=== PATIENT | male | born 1950 | race Caucasian/White ===

== ENCOUNTER 2016-08-20 18:06 | Emergency (ER) | payer OTHER ==
[2016-08-20] MEDS ORDERED: MORPHINE SULFATE 10 MG/ML INJ IM ONE (18:32)
[2016-08-20] MEDS ORDERED: CLONIDINE HCL 0.2 MG TABLET PO ONE (18:34)
--- NOTE | 2016-08-20 18:34 | ER Document Report ---
ED Fall - General Chief Complaint: Fall Stated Complaint: FALL BACK PAIN Time Seen by Provider: 08/20/16 18:23 Mode of Arrival: Wheelchair Information source: Patient TRAVEL OUTSIDE OF THE [place] IN LAST 30 DAYS: No - HPI Patient complains to provider of: Fall down stairs Occurred: Just prior to arrival Where: Home Context: Lost balance Associated symptoms: None Location of injury/pain: Back Quality of pain: Achy Severity: Moderate Pain Level: 3 Notes: Patient is a 65-year-old male who presents to the emergency room complaining of fall down stairs, states he lost his balance which he sometimes does become he has a history of vertigo, and he fell down approximately 12 stairs in his home, he is complaining of low back pain, he denies any head injury or loss of consciousness, no vision changes, no nausea or vomiting, tingling to extremities other than some tingling sensation to his feet that he has chronically - Related data Allergies/Adverse Reactions: hydrocodone [From Lortab] Allergy (Verified 08/20/16 18:19) ibuprofen [From Motrin] Allergy (Verified 08/20/16 18:19) lorazepam [From Ativan] Allergy (Verified 08/20/16 18:19) Past Medical History - General Information source: Patient - Social History Smoking Status: Former Smoker Chew tobacco use (# tins/day): No Frequency of alcohol use: None Drug Abuse: None Family History: Reviewed & Not Pertinent Patient has suicidal ideation: No Patient has homicidal ideation: No - Past Medical History Cardiac Medical History: Reports: Hx Heart Attack - x2, Hx Hypertension Pulmonary Medical History: Reports: Hx COPD Endocrine Medical History: Reports: Hx Diabetes Mellitus Type 2 Renal/ Medical History: Denies: Hx Peritoneal Dialysis Past Surgical History: Reports: Hx Appendectomy, Hx Cardiac Surgery - stent x2, Hx Cholecystectomy, Hx Orthopedic Surgery - left and right rotator cuff - Immunizations Hx Diphtheria, Pertussis, Tetanus Vaccination: Yes Review of Systems - Review of Systems Constitutional: No symptoms reported EENT: No symptoms reported Cardiovascular: No symptoms reported Respiratory: No symptoms reported Gastrointestinal: No symptoms reported Genitourinary: No symptoms reported Male Genitourinary: No symptoms reported Musculoskeletal: See HPI Skin: No symptoms reported Hematologic/Lymphatic: No symptoms reported Neurological/Psychological: No symptoms reported -: Yes All other systems reviewed and negative Physical Exam - Vital signs Vitals: Temp Pulse Resp BP Pulse Ox 97.7 F 68 16 230/86 H 97 08/20/16 18:19 08/20/16 18:19 08/20/16 18:19 08/20/16 18:19 08/20/16 18:19 - Notes Notes: - General General appearance: Appears well, Alert In distress: None - HEENT Head: Normocephalic, Atraumatic Eyes: Normal Conjunctiva: Normal Extraocular movements intact: Yes Eyelashes: Normal Pupils: PERRL - Respiratory Respiratory status: No respiratory distress - Cardiovascular Rhythm: Regular - Abdominal Inspection: Normal - Back Back: tender to palpate in the bilateral lumbar paraspinal musculature - Extremities General upper extremity: Normal inspection General lower extremity: Normal inspection - Neurological Neuro grossly intact: Yes Orientation: AAOx4 Stephen Coma Scale Eye Opening: Spontaneous Stephen Coma Scale Verbal: Oriented Armour Coma Scale Motor: Obeys Commands Armour Coma Scale Total: 15 - Psychological Associated symptoms: Normal affect, Normal mood - Skin Skin Temperature: Warm Skin Moisture: Dry Skin Color: Normal Course - Re-evaluation Re-evalutation: 08/20/16 19:48 Findings were discussed with patient, which are unremarkable, he does report feeling much better, patient was advised to follow-up with his primary care provider in 1-2 days, patient acknowledges understanding and agreement with this plan 08/20/16 19:50 Was noted to be hypertensive at time of arrival, he was given clonidine and pain medication, blood pressure is improved, he does have a history of high blood pressure and takes medication at home for the - Vital Signs Vital signs: Temp Pulse Resp BP Pulse Ox 97.7 F 68 16 230/86 H 97 08/20/16 18:19 08/20/16 18:19 08/20/16 18:19 08/20/16 18:19 08/20/16 18:19 - Diagnostic Test Radiology reviewed: Image reviewed, Reports reviewed Discharge - Discharge Clinical Impression: Low back pain Qualifiers: Chronicity: acute Back pain laterality: bilateral Sciatica presence: without sciatica Qualified Code(s): M54.5 - Low back pain Condition: Stable Disposition: HOME, SELF-CARE Instructions: Muscle Strain ([facility]), Oral Narcotic Medication ([facility]) Additional Instructions: Follow up with your primary care provider in one to 2 days. Return to the emergency room immediately if symptoms worsen or any additional concerns. Prescriptions: Oxycodone HCl/Acetaminophen [Percocet 5-325 mg Tablet] 1 - 2 tab PO ASDIR PRN # 15 tablet PRN Reason:
--- NOTE | 2016-08-20 19:39 | RADIOLOGY REPORT (SQ) ---
EXAM DESCRIPTION: L SPINE WHOLE COMPLETED DATE/TIME: 08/20/2016 7:21 pm REASON FOR STUDY: fall COMPARISON: None. NUMBER OF VIEWS: Five views including obliques. TECHNIQUE: AP, lateral, oblique, and sacral radiographic images acquired of the lumbar spine. LIMITATIONS: None. FINDINGS: MINERALIZATION: Normal. SEGMENTATION: Normal. No transitional anatomy. ALIGNMENT: Normal. VERTEBRAE: Maintained height. No fracture or worrisome bone lesion. DISCS: Preserved height. No significant osteophytes or end plate irregularity. POSTERIOR ELEMENTS: Pedicles and facets are intact. No pars defect or posterior arch defects. HARDWARE: None in the spine. PARASPINAL SOFT TISSUES: Normal. PELVIS: Intact as visualized. No fractures or worrisome bone lesions. SI joints intact. OTHER: No other significant finding. IMPRESSION: NORMAL 5 VIEW LUMBAR SPINE. TECHNICAL DOCUMENTATION: JOB ID: [id number] [employer]- All Rights Reserved
[2016-08-20 20:18] VITALS: BP 205/92
== END 2016-08-20 20:00 | disposition home or self-care (01) ==
LOC: ER 18:06
DX: M54.5 Low back pain (principal); W10.9XXA Fall (on) (from) unspecified stairs and steps, initial encounter; Y92.099 Unspecified place in other non-institutional residence as the place of occurrence of the external cause; I10 Essential (primary) hypertension; J44.9 Chronic obstructive pulmonary disease, unspecified; E11.9 Type 2 diabetes mellitus without complications; Z90.49 Acquired absence of other specified parts of digestive tract; I25.2 Old myocardial infarction; Z87.891 Personal history of nicotine dependence; Z88.6 Allergy status to analgesic agent
CPT/HCPCS: 99283; 96372; 72110; J2270

== ENCOUNTER 2016-12-15 06:25 | Day surgery (SDC) | payer OTHER ==
[~2016-12-15 06:25] MED LIST: KETOROLAC TROMETHAMINE 0.45% 4 DROP/0.4 ML DROPERETTE OD PRN
[2016-12-15] MEDS: TROPICAMIDE 1% OPH SOLN 3 ML OD PRN ×3 (06:51→07:11)
[2016-12-15] MEDS: CYCLOPENTOLATE 0.2%/PHENYLEPHRINE 1% OPH SOLN 2 ML OD PRN ×3 (06:51→07:11)
[2016-12-15] MEDS: BESIFLOXACIN HCL 0.6% OPH SUSP 5 ML BOTTLE OD PRN ×3 (06:51→08:01)
[2016-12-15] MEDS: TETRACAINE HCL 0.5% OPH SOLN 2 ML OD PRN ×3 (06:52→07:38)
[2016-12-15] MEDS ORDERED: MIDAZOLAM 2 MG/2 ML INJ ONE (06:54)
[2016-12-15] MEDS ORDERED: FENTANYL CITRATE INJ/PF 100 MCG/2 ML AMPUL ONE (06:54)
[2016-12-15] MEDS ORDERED: EPINEPHRINE INJ/PF 1 MG/1 ML AMPULE ONE (07:16)
[2016-12-15] MEDS ORDERED: CHONDR SU A NA/HYALUR INTRAOC KIT (SURGICARE) ONE (07:16)
[2016-12-15] MEDS ORDERED: LIDOCAINE 1% INJ-PF (10 MG/ML) 30 ML SDV ONE (07:16)
[2016-12-15] MEDS ORDERED: ONDANSETRON HCL INJ/PF 4 MG/2 ML SDV ONE (07:42)
--- NOTE | 2016-12-15 18:18 | [facility] OPERATIVE REPORT E ---
[facility] Operative Report NAME: CONSUELO BARCLAY AGE: 66Y DATE OF SURGERY: 12/15/2016 ROOM: PREOPERATIVE DIAGNOSIS: CATARACT, RIGHT EYE. POSTOPERATIVE DIAGNOSIS: CATARACT, RIGHT EYE. OPERATION: Cataract extraction with intraocular lens implant of the right eye. SURGEON: CRIS WALLER M.D. ANESTHESIA: Topical. PROCEDURE: After obtaining appropriate consent, the patient's right eye was prepped and draped in sterile fashion as well as the surgeon in a sterile manner and cataract surgery was started. First a paracentesis blade was used to make a small side-port incision. Viscoelastic was used to inflate the anterior chamber. Next a 2.4 mm incision was made with the paracentesis blade. A continuous capsulorrhexis incision was made using a cystotome and Utrata forceps. Following this hydrodissection was carried out to make the lens fully loose and mobile and it was rotated 90 degrees. Following this, a bzvhte-hmk-hpybxte technique was used to phacoemulsify the lens with a CDE of 26.63. The remaining cortex was removed with irrigation/aspiration. Provisc was instilled into the capsular bag to inflate the bag. A SN60WF, 25.0 diopter lens was placed. The remaining viscoelastic material was removed with irrigation/aspiration. Following this, a 10-0 nylon suture was used to close the incision and it was found to be watertight. Vigamox was instilled in the eye and a protective shield was placed over the eye. The patient returned to the postoperative recovery in stable condition. DICTATING PHYSICIAN: CRIS WALLER M.D. [id number] PHY#: [id number] ID: [id number] JOB#: [id number] ACCT: [id number] cc:CRIS WALLER M.D. >
--- NOTE | 2016-12-15 18:18 | DISCHARGE SUMMARY E ---
Discharge Summary NAME: CONSUELO BARCLAY : 1950 AGE: 66Y ADMITTED: 12/15/2016 DISCHARGED: 12/15/2016 REASON FOR ADMISSION: This is a 65-year-old patient who underwent cataract extraction of the right eye. DIAGNOSIS: Cataract, right eye. HISTORY AND HOSPITAL COURSE: They underwent surgery because she was having trouble reading road signs and getting glare from headlights. The patient should be on a regular diet. No bending at the waist. No heavy lifting. The patient should use her Besivance, Durezol, and Ilevro at 3:00 p.m. and 8:00 p.m. and sleep with a rigid shield, and I will see them for a 1-day postoperative tomorrow. DICTATING PHYSICIAN: CRIS WALLER M.D. [id number] PHY#: [id number] ID: [id number] JOB#: [id number] ACCT: [id number] cc:CRIS WALLER M.D. >
== END 2016-12-15 09:16 | disposition home or self-care (01) ==
LOC: SC 06:25
PROVIDERS: ATTEND Internal Medicine
PROC: 08RJ3JZ Replacement of Right Lens with Synthetic Substitute, Percutaneous Approach (ICD-10-PCS; principal; 2016-12-15 07:30)
DX: H25.11 Age-related nuclear cataract, right eye (principal); J44.9 Chronic obstructive pulmonary disease, unspecified; I10 Essential (primary) hypertension; E11.9 Type 2 diabetes mellitus without complications; I25.2 Old myocardial infarction; Z86.73 Personal history of transient ischemic attack (TIA), and cerebral infarction without residual deficits; Z79.82 Long term (current) use of aspirin; Z88.8 Allergy status to other drugs, medicaments and biological substances; Z88.6 Allergy status to analgesic agent
CPT/HCPCS: 82962; 66984; V2632; J3490 ×2; J0171; J3010; J2405; 142; J2250

== ENCOUNTER 2017-01-05 06:50 | Day surgery (SDC) | payer OTHER ==
[~2017-01-05 06:50] MED LIST changes: -KETOROLAC TROMETHAMINE 0.45% 4 DROP/0.4 ML DROPERETTE OD PRN; +KETOROLAC TROMETHAMINE 0.45% 4 DROP/0.4 ML DROPERETTE OS PRN
[2017-01-05] MEDS ORDERED: MIDAZOLAM 2 MG/2 ML INJ ONE (06:52)
[2017-01-05] MEDS ORDERED: FENTANYL CITRATE INJ/PF 100 MCG/2 ML AMPUL ONE (06:53)
[2017-01-05] MEDS ORDERED: EPINEPHRINE INJ/PF 1 MG/1 ML AMPULE ONE (07:07)
[2017-01-05] MEDS ORDERED: CHONDR SU A NA/HYALUR INTRAOC KIT (SURGICARE) ONE (07:07)
[2017-01-05] MEDS ORDERED: LIDOCAINE 1% INJ-PF (10 MG/ML) 30 ML SDV ONE (07:07)
[2017-01-05] MEDS: TETRACAINE HCL 0.5% OPH SOLN 2 ML OS PRN ×3 (07:08→07:54)
[2017-01-05] MEDS: CYCLOPENTOLATE 0.2%/PHENYLEPHRINE 1% OPH SOLN 2 ML OS PRN ×3 (07:08→07:37)
[2017-01-05] MEDS: TROPICAMIDE 1% OPH SOLN 3 ML OS PRN ×3 (07:08→07:37)
[2017-01-05] MEDS: BESIFLOXACIN HCL 0.6% OPH SUSP 5 ML BOTTLE OS PRN ×4 (07:09→08:20)
--- NOTE | 2017-01-06 08:03 | [facility] DISCHARGE SUMMARY E ---
[facility] Discharge Summary NAME: CONSUELO BARCLAY AGE: 66Y ADMITTED: 01/05/2017 DISCHARGED: 01/05/2017 HOSPITAL COURSE This is a 66-year-old patient who underwent cataract extraction of the left eye. DIAGNOSIS: CATARACT, LEFT EYE. INDICATION: Patient underwent surgery because the patient is having difficulty with glare from headlights making it difficult to drive. DISCHARGE INSTRUCTIONS: Patient is to be on a regular diet; no bending at the waist; no heavy lifting. Patient is to use Besivance, Ilevro and Durezol at 3:00 p.m. and 8:00 p.m.; and, sleep with a rigid shield. I will see patient for 1-day postoperative. DICTATING PHYSICIAN: CRIS WALLER M.D. [id number] Y#: [id number] ID: [id number] JOB#: [id number] ACCT: [id number] cc:CRIS WALLER M.D. >
--- NOTE | 2017-01-06 08:03 | [facility] OPERATIVE REPORT E ---
[facility] Operative Report NAME: CONSUELO BARCLAY AGE: 66Y DATE OF SURGERY: 01/05/2017 ROOM: PREOPERATIVE DIAGNOSIS: CATARACT, LEFT EYE. POSTOPERATIVE DIAGNOSIS: CATARACT, LEFT EYE. OPERATION: Cataract extraction with intraocular lens implant of the left eye. SURGEON: CRIS WALLER M.D. ANESTHESIA: Topical. PROCEDURE: After obtaining appropriate consent, the patient's left eye was prepped and draped in sterile fashion as well as the surgeon in a sterile manner and cataract surgery was started. First a paracentesis blade was used to make a small side-port incision. Viscoelastic was used to inflate the anterior chamber. Next a 2.4 mm incision was made with the paracentesis blade. A continuous capsulorrhexis incision was made using a cystotome and Utrata forceps. Following this hydrodissection was carried out to make the lens fully loose and mobile and it was rotated 90 degrees. Following this, a qvzjqx-nbl-lkzbrnk technique was used to phacoemulsify the lens with a CDE of 10.20. The remaining cortex was removed with irrigation/aspiration. Provisc was instilled into the capsular bag to inflate the bag. A SN60WF, 25.0 diopter lens was placed. The remaining viscoelastic material was removed with irrigation/aspiration. Following this, a 10-0 Nylon suture was used to close the incision and it was found to be watertight. Vigamox was instilled in the eye and a protective shield was placed over the eye. The patient returned to the postoperative recovery in stable condition. DICTATING PHYSICIAN: CRIS WALLER M.D. [id number] PHY#: [id number] ID: [id number] JOB#: [id number] ACCT: [id number] cc:CRIS WALLER M.D. >
== END 2017-01-05 09:17 | disposition home or self-care (01) ==
LOC: SC 06:50
PROVIDERS: ATTEND Internal Medicine
PROC: 08RK3JZ Replacement of Left Lens with Synthetic Substitute, Percutaneous Approach (ICD-10-PCS; principal; 2017-01-05 08:00)
DX: H25.12 Age-related nuclear cataract, left eye (principal); Z96.1 Presence of intraocular lens; Z86.73 Personal history of transient ischemic attack (TIA), and cerebral infarction without residual deficits; E11.9 Type 2 diabetes mellitus without complications; K21.9 Gastro-esophageal reflux disease without esophagitis; I10 Essential (primary) hypertension; I25.10 Atherosclerotic heart disease of native coronary artery without angina pectoris; Z79.899 Other long term (current) drug therapy; Z79.82 Long term (current) use of aspirin; Z79.84 Long term (current) use of oral hypoglycemic drugs
CPT/HCPCS: 66984; 82962; V2632; J2250; J3490 ×2; J0171; J3010; 142

== ENCOUNTER 2017-02-18 19:06 | Observation (INO) | payer OTHER ==
[2017-02-18] MEDS ORDERED: HYDRALAZINE HCL INJ/PF 20 MG/1 ML SDV IV ONE (19:23)
--- NOTE | 2017-02-18 19:26 | ER Document Report ---
ED General - General Stated Complaint: ALTERED MENTAL STATUS Time Seen by Provider: 02/18/17 19:20 Mode of Arrival: Medic Information source: Patient Notes: 66-year-old male on lisinopril hydrochlorothiazide metoprolol and amlodipine presents with complaints of sudden episode of confusion dizziness and syncope. Patient has had a history of TIAs and previous CVA. Patient's blood pressure upon arrival was noted to be 253/110 TRAVEL OUTSIDE OF THE [place] IN LAST 30 DAYS: No - HPI Onset: Just prior to arrival Onset/Duration: Sudden Quality of pain: Achy Severity: Mild Pain Level: 1 Associated symptoms: Headache Exacerbated by: Denies Relieved by: Denies Similar symptoms previously: Yes Recently seen / treated by doctor: Yes - Related Data Allergies/Adverse Reactions: diazepam [From Valium] Allergy (Intermediate, Verified 01/05/17 07:40) RASH lorazepam [From Ativan] Allergy (Intermediate, Verified 01/05/17 07:40) RASH hydrocodone [From Lortab] Adverse Reaction (Intermediate, Verified 01/05/17 07: 40) NAUSEA VOMITING ibuprofen [From Motrin] Adverse Reaction (Intermediate, Verified 01/05/17 07:40) NAUSEA VOMITING Home Medications: Current Home Medications Amlodipine Besylate [Norvasc 10 mg Tablet] 10 mg PO DAILY 02/18/17 [History] Finasteride [Proscar 5 mg Tablet] 5 mg PO DAILY 02/18/17 [History] Glipizide 5 mg PO DAILY 02/18/17 [History] Trazodone HCl 100 mg PO BID 02/18/17 [History] Past Medical History - Social History Smoking Status: Current Every Day Smoker Cigarette use (# per day): Yes Chew tobacco use (# tins/day): No Smoking Education Provided: No Family History: Reviewed & Not Pertinent - Past Medical History Cardiac Medical History: Reports: Hx Heart Attack - 'S, Hx Hypertension - medication Pulmonary Medical History: Reports: Hx COPD Denies: Hx Asthma Neurological Medical History: Denies: Hx Cerebrovascular Accident, Hx Seizures Endocrine Medical History: Reports: Hx Diabetes Mellitus Type 2 Renal/ Medical History: Denies: Hx Peritoneal Dialysis GI Medical History: Reports: Hx Ulcer - LATE . Denies: Hx Hepatitis, Hx Hiatal Hernia Infectious Medical History: Denies: Hx Hepatitis Past Surgical History: Reports: Hx Appendectomy, Hx Cardiac Surgery - stent x2, Hx Cholecystectomy, Hx Orthopedic Surgery - left and right rotator cuff. Denies : Hx Open Heart Surgery, Hx Pacemaker - Immunizations Hx Diphtheria, Pertussis, Tetanus Vaccination: Yes Review of Systems - Review of Systems Notes: REVIEW OF SYSTEMS: CONSTITUTIONAL : Denies fever, chills, or sweats. Denies recent illness. EENT: Denies eye, ear, throat, or mouth pain or symptoms. Denies nasal or sinus congestion or discharge. Denies throat, tongue, or mouth swelling or difficulty swallowing. CARDIOVASCULAR: Denies chest pain. Denies palpitations or racing or irregular heart beat. Denies ankle edema. RESPIRATORY: Denies cough, cold, or chest congestion. Denies shortness of breath, difficulty breathing, or wheezing. GASTROINTESTINAL: Denies abdominal pain or distention. Denies nausea, vomiting , or diarrhea. Denies blood in vomitus, stools, or per rectum. Denies black, tarry stools. Denies constipation. GENITOURINARY: Denies difficulty urinating, painful urination, burning, frequency, blood in urine, or discharge. MUSCULOSKELETAL: Denies back or neck pain or stiffness. Denies joint pain or swelling. SKIN: Denies rash, lesions or sores. HEMATOLOGIC : Denies easy bruising or bleeding. LYMPHATIC: Denies swollen, enlarged glands. NEUROLOGICAL: admits to headache syncope PSYCHIATRIC: Denies anxiety or stress. Denies depression, suicidal ideation, or homicidal ideation. ALL OTHER SYSTEMS REVIEWED AND NEGATIVE. Dictation was performed using [employer] voice recognition software PHYSICAL EXAMINATION: GENERAL: Well-appearing, well-nourished and in no acute distress. HEAD: Atraumatic, normocephalic. EYES: Pupils equal round and reactive to light, extraocular movements intact, sclera anicteric, conjunctiva are normal. ENT: Nares patent, oropharynx clear without exudates. Moist mucous membranes. NECK: Normal range of motion, supple without lymphadenopathy LUNGS: Breath sounds clear to auscultation bilaterally and equal. No wheezes rales or rhonchi. HEART: Regular rate and rhythm without murmurs ABDOMEN: Soft, nontender, nondistended abdomen. No guarding, no rebound. No masses appreciated. Musculoskeletal: Normal range of motion, no pitting or edema. No cyanosis. NEUROLOGICAL: Cranial nerves grossly intact. Normal speech, normal gait. Normal sensory, motor exams PSYCH: Normal mood, normal affect. SKIN: Warm, Dry, normal turgor, no rashes or lesions noted. Physical Exam - Vital signs Vitals: Resp Pulse Ox 19 97 02/18/17 19:18 02/18/17 19:18 Course - Re-evaluation Re-evalutation: 02/18/17 20:16 Patient is noted to be significantly hypertensive, was given 20 of hydralazine and blood pressure has improved approximately 20% stroke workup notes no significant abnormality at this time hospitalist paged for admission 02/19/17 03:15 Patient blood pressure did improve, he is in no distress at this time, - Vital Signs Vital signs: Temp Pulse Resp BP Pulse Ox 97.7 F 82 20 195/75 H 98 02/19/17 00:24 02/19/17 02:00 02/19/17 00:24 02/19/17 00:24 02/19/17 00:24 - Laboratory Result Diagrams: 02/19/17 02:03 02/19/17 02:03 Laboratory results interpreted by me: 02/18/17 02/18/17 19:50 19:50 Glucose 115 H Creatine Kinase 205 H TSH 4.71 H - Diagnostic Test Radiology reviewed: Image reviewed, Reports reviewed - EKG Interpretation by Me EKG shows normal: Sinus rhythm, [place], Intervals, QRS Complexes Critical Care Note - Critical Care Note Total time excluding time spent on procedures (mins): 41 Comments: 41 minutes of critical care time spent in direct contact evaluating and reevaluating the patient, treating symptoms, reviewing labs and studies and speaking with family and consultants excluding any procedures Discharge - Discharge Clinical Impression: Hypertensive emergency TIA (transient ischemic attack) Qualifiers: Transient cerebral ischemia type: unspecified Qualified Code(s): G45.9 - Transient cerebral ischemic attack, unspecified Condition: Stable Disposition: ADMITTED INPATIENT Admitting Provider: Hospitalist Unit Admitted: [facility]
--- NOTE | 2017-02-18 19:49 | RADIOLOGY REPORT (SQ) ---
EXAM DESCRIPTION: CHEST SINGLE VIEW COMPLETED DATE/TIME: 02/18/2017 7:33 pm REASON FOR STUDY: htn, syncope COMPARISON: None. EXAM PARAMETERS: NUMBER OF VIEWS: One view. TECHNIQUE: Single frontal radiographic view of the chest acquired. RADIATION DOSE: NA LIMITATIONS: None. FINDINGS: LUNGS AND PLEURA: No opacities, masses or pneumothorax. No pleural effusion. MEDIASTINUM AND HILAR STRUCTURES: No masses. Contour normal. HEART AND VASCULAR STRUCTURES: Heart normal in size. Normal vasculature. BONES: No acute findings. HARDWARE: None in the chest. OTHER: No other significant finding. IMPRESSION: NO ACUTE RADIOGRAPHIC FINDING IN THE CHEST. TECHNICAL DOCUMENTATION: JOB ID: [id number] [employer]- All Rights Reserved
[2017-02-18 20:00] LABS: ABSOLUTE BASOPHILS # (AUTO) 0.1 10^3/uL (0.0-0.2); ABSOLUTE EOSINOPHILS # (AUTO) 0.4 10^3/uL (0.0-0.6); ABSOLUTE MONOCYTES (AUTO) 0.7 10^3/uL (0.1-1.4); ABSOLUTE NEUT (AUTO) 5.9 10^3/uL (1.7-8.2); BASOPHILS % (AUTO) 0.9 % (0-2); EOSINOPHILS % (AUTO) 4.1 % (0-6); HEMATOCRIT 42.3 % (37.9-51.0); HEMOGLOBIN 15.1 g/dL (13.5-17.0); LYMPHOCYTES % (AUTO) 21.7 % (13-45); MEAN CORPUSCULAR HEMOGLOBIN 29.9 pg (27.0-33.4); MEAN CORPUSCULAR HGB CONC 35.7 g/dL (32.0-36.0); MEAN CORPUSCULAR VOLUME 84 fl (80-97); MONOCYTES % (AUTO) 8.1 % (3-13); RED BLOOD COUNT 5.05 10^6/uL (4.35-5.55); RED CELL DISTRIBUTION WIDTH 13.8 % (11.5-14.0); SEGMENTED NEUTROPHILS % (AUTO) 65.2 % (42-78)
--- NOTE | 2017-02-18 20:02 | RADIOLOGY REPORT (SQ) ---
EXAM DESCRIPTION: CT HEAD WITHOUT COMPLETED DATE/TIME: 02/18/2017 7:38 pm REASON FOR STUDY: htn, syncope COMPARISON: 03/05/2016 TECHNIQUE: Axial images acquired through the brain without intravenous contrast. Images reviewed wi th bone, brain and subdural windows. Images stored on PACS. All CT scanners at this facility use dose modulation, iterative reconstruction, and/or weight based d osing when appropriate to reduce radiation dose to as low as reasonably achievable (ALARA). [facility]: Dose Right [facility]: CareDose [facility]: Dose Right [facility]: Teradose 4D [facility]: [employer] RADIATION DOSE: CT Rad equipment meets quality standard of care and radiation dose reduction techniq ues were employed. CTDIvol: 64.6 mGy. DLP: 1163 mGy-cm. mGy. LIMITATIONS: None. FINDINGS: VENTRICLES: Stable size and contour, again demonstrating ex vacuo dilatation of the fronta l horn of the left lateral ventricle. CEREBRUM: No masses. No hemorrhage. No midline shift. No evidence for acute infarction. Left front al lobe encephalomalacia, unchanged in the study interval. Otherwise normal mallory- white matter diffe rentiation. CEREBELLUM: No masses. No hemorrhage. No alteration of density. No evidence for acute infarction. EXTRAAXIAL SPACES: No fluid collections. No masses. ORBITS AND GLOBE: No intra- or extraconal masses. Normal contour of globe without masses. CALVARIUM: No fracture. PARANASAL SINUSES: No fluid or mucosal thickening. SOFT TISSUES: No mass or hematoma. OTHER: Atherosclerotic vascular calcifications are seen within the cavernous segments of the internal carotid arteries. IMPRESSION: Stable CT appearance of the brain, again demonstrating left frontal encephalomalacia wit h ex vacuo dilatation of the frontal horn of the left lateral ventricle, consistent with sequela of r emote ischemic injury. No acute findings. EVIDENCE OF ACUTE STROKE: NO. COMMENT: Quality ID # [id number]: Final reports with documentation of one or more dose reduction techniques (e.g., Automated exposure control, adjustment of the mA and/or kV according to patient size, use of iterative reconstruction technique) TECHNICAL DOCUMENTATION: JOB ID: [id number] [employer]- All Rights Reserved
[2017-02-18 20:05] LABS: PROTHROMBIN TIME 12.4 SEC (11.4-15.4)
[2017-02-18 20:06] LABS: PARTIAL THROMBOPLASTIN TIME 29.9 SEC (23.5-35.8)
[2017-02-18 20:18] LABS: ALANINE AMINOTRANSFERASE 56 U/L (21-72); ALBUMIN 4.3 g/dL (3.5-5.0); ALKALINE PHOSPHATASE 61 U/L (38-126); ANION GAP 14 (5-19); ASPARTATE AMINO TRANSFERASE 26 U/L (17-59); BILIRUBIN,DIRECT 0.3 mg/dL (0.0-0.4); BILIRUBIN,TOTAL 0.4 mg/dL (0.2-1.3); BLOOD UREA NITROGEN 19 mg/dL (7-20); CALCIUM 9.2 mg/dL (8.4-10.2); CARBON DIOXIDE 22 mmol/L (22-30); CHLORIDE 107 mmol/L (98-107); CREATINE KINASE 205 U/L (55-170); CREATININE RESULT 1.17 mg/dL (0.52-1.25); GLUCOSE 115 mg/dL (75-110); POTASSIUM 3.9 mmol/L (3.6-5.0); SODIUM 143.3 mmol/L (137-145); TOTAL PROTEIN 6.7 g/dL (6.3-8.2)
[2017-02-18 20:28] LABS: CREATINE KINASE MB 2.78 ng/mL (<4.55); TROPONIN I 0.014 ng/mL
[2017-02-18] MEDS ORDERED: ATORVASTATIN CALCIUM 40 MG TABLET PO SCH (22:00)
[2017-02-18] MEDS ORDERED: IPRATROPIUM/ALBUTEROL 0.5-2.5 MG/3 ML AMPUL NEB PRN (22:06)
[2017-02-18] MEDS ORDERED: ZOLPIDEM TARTRATE 5 MG TABLET PO PRN (22:06)
[2017-02-18] MEDS ORDERED: ONDANSETRON HCL INJ/PF 4 MG/2 ML SDV IV PRN (22:06)
[2017-02-18] MEDS ORDERED: ACETAMINOPHEN 325 MG TABLET PO PRN (22:06)
[2017-02-18] MEDS ORDERED: INSULIN LISPRO 100 UNIT/ML 3 ML VIAL SUBCUT PRN (22:06)
[2017-02-18] MEDS ORDERED: DEXTROSE 40% GEL 15 GM TUBE PO PRN ×2 (22:06)
[2017-02-18] MEDS ORDERED: DEXTROSE 50%-WATER 25 GM/50 ML DISP.SYRIN IV PRN ×2 (22:06)
[2017-02-18] MEDS ORDERED: GLUCAGON,HUMAN RECOMB 1 MG INJ IM PRN (22:06)
[2017-02-18 22:47] LABS: URINE BARBITURATES SCREEN NEGATIVE; URINE METHADONE SCREEN NEGATIVE; URINE OPIATES LOW NEGATIVE; URINE PHENCYCLIDINE SCREEN NEGATIVE
[2017-02-18] MEDS ORDERED: NITROGLYCERIN 5 MG (0.2 MG/HR) PATCH.TD24 TD ONE (23:00)
[2017-02-18] MEDS ORDERED: FUROSEMIDE INJ/PF 20 MG/2 ML SDV IV ONE (23:00)
[2017-02-18] MEDS ORDERED: AMLODIPINE BESYLATE 10 MG TABLET PO ONE (23:00)
[2017-02-19] MEDS: HYDRALAZINE HCL INJ/PF 20 MG/1 ML SDV IV PRN ×2 (00:13→07:51)
[2017-02-19 02:18] LABS: ABSOLUTE BASOPHILS # (AUTO) 0.1 10^3/uL (0.0-0.2); ABSOLUTE EOSINOPHILS # (AUTO) 0.4 10^3/uL (0.0-0.6); ABSOLUTE LYMPHOCYTES (AUTO) 1.8 10^3/uL (0.5-4.7); ABSOLUTE MONOCYTES (AUTO) 0.9 10^3/uL (0.1-1.4); ABSOLUTE NEUT (AUTO) 7.8 10^3/uL (1.7-8.2); BASOPHILS % (AUTO) 1.2 % (0-2); EOSINOPHILS % (AUTO) 3.3 % (0-6); HEMATOCRIT 45.3 % (37.9-51.0); HEMOGLOBIN 15.9 g/dL (13.5-17.0); HGB HCT DIFFERENCE 2.4; LYMPHOCYTES % (AUTO) 16.1 % (13-45); MEAN CORPUSCULAR HEMOGLOBIN 29.2 pg (27.0-33.4); MEAN CORPUSCULAR HGB CONC 35.2 g/dL (32.0-36.0); MEAN CORPUSCULAR VOLUME 83 fl (80-97); MONOCYTES % (AUTO) 8.5 % (3-13); RED BLOOD COUNT 5.46 10^6/uL (4.35-5.55); RED CELL DISTRIBUTION WIDTH 14.1 % (11.5-14.0); SEGMENTED NEUTROPHILS % (AUTO) 70.9 % (42-78)
[2017-02-19 02:30] LABS: ANION GAP 15 (5-19); BLOOD UREA NITROGEN 18 mg/dL (7-20); CALCIUM 9.8 mg/dL (8.4-10.2); CARBON DIOXIDE 26 mmol/L (22-30); CHLORIDE 103 mmol/L (98-107); CREATINE KINASE 182 U/L (55-170); CREATININE RESULT 1.18 mg/dL (0.52-1.25); GLUCOSE 146 mg/dL (75-110); POTASSIUM 3.8 mmol/L (3.6-5.0); SODIUM 143.8 mmol/L (137-145)
[2017-02-19 02:47] LABS: CREATINE KINASE MB 3.02 ng/mL (<4.55); TROPONIN I 0.018 ng/mL
--- NOTE | 2017-02-19 04:21 | PDOC H&P ---
History of Present Illness Admission Date/PCP: 02/18/17 22:06 CAMRYN BEARDEN MD Patient complains of: Altered mental status History of Present Illness: CONSUELO BARCLAY SR is a 66 year old male with a past medical history of hypertension and several previous CVAs who presents after sudden episode of lightheadedness and "blacking out" when trying to stand up. No documentation of injury, limb shaking or incontinence. He is brought to the emergency room for evaluation found to have a blood pressure of 253/110 in sinus rhythm. He receives IV hydralazine, CT of the head shows old CVA only. He is currently asymptomatic and referred to the hospitalist for admission. Patient denies recent change in medications, denies [id number]-[id number] medication use and is otherwise felt well. Past Medical History Cardiac Medical History: Reports: Myocardial Infarction - ', Hypertension - medication Pulmonary Medical History: Reports: Chronic Obstructive Pulmonary Disease (COPD) Denies: Asthma Neurological Medical History: Denies: Seizures Endocrine Medical History: Reports: Diabetes Mellitus Type 2 GI Medical History: Denies: Hepatitis, Hiatal Hernia Hematology: Denies: Anemia, Sickle Cell Disease Past Surgical History Past Surgical History: Reports: Appendectomy, Cholecystectomy, Orthopedic Surgery - left and right rotator cuff Denies: Pacemaker Social History Information Source: Patient Smoking Status: Current Every Day Smoker Frequency of Alcohol Use: None Hx Recreational Drug Use: No Drugs: None Hx Prescription Drug Abuse: No - Advance Directive Resuscitation Status: Full Code Family History Family History: CVA, Hypertension Parental Family History Reviewed: Yes Children Family History Reviewed: Yes Sibling(s) Family History Reviewed.: Yes Medication/Allergy Home Medications: Aspirin [Aspirin EC] 81 mg PO DAILY 12/13/16 Atorvastatin Calcium 80 mg PO QHS 12/13/16 Cholecalciferol (Vitamin D3) [Vitamin D3 1000 Unit Tablet] 1,000 unit PO BID Glipizide 5 mg PO DAILY 12/13/16 Isosorbide Mononitrate [Imdur 60 mg Tablet.er] 60 mg PO DAILY 12/13/16 Lisinopril/Hydrochlorothiazide [Lisinopril-Hctz 20-12.5 mg Tab] 1 each PO BID Meclizine HCl 25 mg PO TID 12/13/16 Metoprolol Tartrate 100 mg PO BID 12/13/16 Amlodipine Besylate [Norvasc 10 mg Tablet] 10 mg PO DAILY 02/18/17 Finasteride [Proscar 5 mg Tablet] 5 mg PO DAILY 02/18/17 Glipizide 5 mg PO DAILY 02/18/17 Trazodone HCl 100 mg PO BID 02/18/17 Allergies/Adverse Reactions: diazepam [From Valium] Allergy (Intermediate, Verified 01/05/17 07:40) RASH lorazepam [From Ativan] Allergy (Intermediate, Verified 01/05/17 07:40) RASH hydrocodone [From Lortab] Adverse Reaction (Intermediate, Verified 01/05/17 07: 40) NAUSEA VOMITING ibuprofen [From Motrin] Adverse Reaction (Intermediate, Verified 01/05/17 07:40) NAUSEA VOMITING Review of Systems Constitutional: ABSENT: chills, fever(s), headache(s), weight gain, weight loss Eyes: ABSENT: visual disturbances Ears: ABSENT: hearing changes Cardiovascular: ABSENT: chest pain, dyspnea on exertion, edema, orthropnea, palpitations Respiratory: ABSENT: cough, hemoptysis Gastrointestinal: ABSENT: abdominal pain, constipation, diarrhea, hematemesis, hematochezia, nausea, vomiting Genitourinary: ABSENT: dysuria, hematuria Musculoskeletal: ABSENT: joint swelling Integumentary: ABSENT: rash, wounds Neurological: ABSENT: abnormal gait, abnormal speech, confusion, dizziness, focal weakness, syncope Psychiatric: ABSENT: anxiety, depression, homidical ideation, suicidal ideation Endocrine: ABSENT: cold intolerance, heat intolerance, polydipsia, polyuria Hematologic/Lymphatic: ABSENT: easy bleeding, easy bruising Physical Exam Vital Signs: Temp Pulse Resp BP Pulse Ox 98.5 F 67 18 149/60 H 97 02/19/17 03:30 02/19/17 03:30 02/19/17 03:30 02/19/17 03:30 02/19/17 03:30 Intake & Output 02/17/17 02/18/17 02/19/17 11:59 11:59 11:59 Weight 82.1 kg General appearance: PRESENT: no acute distress, well-developed, well-nourished Head exam: PRESENT: atraumatic, normocephalic Eye exam: PRESENT: conjunctiva pink, EOMI, PERRLA. ABSENT: scleral icterus Ear exam: PRESENT: normal external ear exam Mouth exam: PRESENT: moist, tongue midline Neck exam: ABSENT: carotid bruit, JVD, lymphadenopathy, thyromegaly Respiratory exam: PRESENT: clear to auscultation carol. ABSENT: rales, rhonchi, wheezes Cardiovascular exam: PRESENT: RRR. ABSENT: diastolic murmur, rubs, systolic murmur Pulses: PRESENT: normal dorsalis pedis pul Vascular exam: PRESENT: normal capillary refill GI/Abdominal exam: PRESENT: normal bowel sounds, soft. ABSENT: distended, guarding, mass, organolmegaly, rebound, tenderness Rectal exam: PRESENT: deferred Extremities exam: PRESENT: full ROM. ABSENT: calf tenderness, clubbing, pedal edema Neurological exam: PRESENT: alert, awake, oriented to person, oriented to place , oriented to time, oriented to situation, CN II-XII grossly intact. ABSENT: motor sensory deficit Psychiatric exam: PRESENT: appropriate affect, normal mood. ABSENT: homicidal ideation, suicidal ideation Skin exam: PRESENT: dry, intact, warm. ABSENT: cyanosis, rash Results Laboratory Results: 02/19/17 02:03 02/19/17 02:03 02/19/17 02/19/17 02:03 02:03 WBC 11.0 H RBC 5.46 Hgb 15.9 Hct 45.3 MCV 83 MCH 29.2 MCHC 35.2 RDW 14.1 H Plt Count 253 Seg Neutrophils % 70.9 Lymphocytes % 16.1 Monocytes % 8.5 Eosinophils % 3.3 Basophils % 1.2 Absolute Neutrophils 7.8 Absolute Lymphocytes 1.8 Absolute Monocytes 0.9 Absolute Eosinophils 0.4 Absolute Basophils 0.1 Sodium 143.8 Potassium 3.8 Chloride 103 Carbon Dioxide 26 Anion Gap 15 BUN 18 Creatinine 1.18 Est GFR ( Amer) > 60 Est GFR (Non-Af Amer) > 60 Glucose 146 H Calcium 9.8 02/19/17 02/19/17 02:03 02:03 Creatine Kinase 182 H CK-MB (CK-2) 3.02 Troponin I 0.018 Impressions: Chest X-Ray 02/18/17 19:23 IMPRESSION: NO ACUTE RADIOGRAPHIC FINDING IN THE CHEST. Head CT 02/18/17 19:23 IMPRESSION: Stable CT appearance of the brain, again demonstrating left frontal encephalomalacia with ex vacuo dilatation of the frontal horn of the left lateral ventricle, consistent with sequela of remote ischemic injury. No acute findings. EVIDENCE OF ACUTE STROKE: NO. Assessment & Plan - Diagnosis (1) Hypertensive emergency Is this a current diagnosis for this admission?: Yes Plan: IMCU bed admission, IV hydralazine, Vasotec and resumption of home medication regiment. Suspect missed medications and will reintroduce home medications carefully. (2) Tobacco abuse Is this a current diagnosis for this admission?: Yes Plan: Tobacco Dependence patient received tobacco cessation counseling and offered nicotine replacement options (3) TIA (transient ischemic attack) Qualifiers: Transient cerebral ischemia type: unspecified Qualified Code(s): G45.9 - Transient cerebral ischemic attack, unspecified Is this a current diagnosis for this admission?: Yes Plan: Optimization of blood pressure, aspirin and Lipitor follow-up A1c and lipid profile. (4) Diabetes Is this a current diagnosis for this admission?: Yes Plan: Unclear control evaluate A1c resume home regiment with sliding scale coverage. - Time Time Spent: 50 to 70 Minutes - Inpatient Certification Medical Necessity: Need Close Monitoring Due to Risk of Patient Decompensation
[2017-02-19 04:46] LABS: CHOLESTEROL 186.57 mg/dL (0-200); Direct HDL 47 mg/dL (>40); TRIGLYCERIDES 125 mg/dL (<150)
[2017-02-19 04:57] LABS: DIRECT LDL 120 mg/dL (<100)
[2017-02-19] MEDS: HEPARIN SOD (PORCINE) 5,000 UNIT/ML 1 ML SYRINGE SUBCUT SCH ×2 (06:11→14:06)
[2017-02-19 08:34] LABS: CREATINE KINASE MB 2.92 ng/mL (<4.55)
[2017-02-19 08:38] LABS: TROPONIN I < 0.012 ng/mL
[2017-02-19] MEDS: DOCUSATE SODIUM 100 MG CAPSULE PO SCH ×2 (09:23→17:04)
[2017-02-19] MEDS: TRAZODONE HCL 50 MG TABLET PO SCH ×2 (09:23→17:06)
[2017-02-19] MEDS: METOPROLOL TARTRATE 100 MG TABLET PO SCH ×2 (09:24→17:04)
[2017-02-19] MEDS ORDERED: ISOSORBIDE MONONITRATE 60 MG TAB.ER.24H PO SCH (10:00)
[2017-02-19] MEDS ORDERED: AMLODIPINE BESYLATE 10 MG TABLET PO SCH (10:00)
[2017-02-19] MEDS ORDERED: ASPIRIN 81 MG TABLET, ENT COATED PO SCH (10:00)
[2017-02-19 15:36] LABS: CREATINE KINASE MB 2.92 ng/mL (<4.55)
[2017-02-19 15:38] LABS: TROPONIN I 0.075 ng/mL
--- NOTE | 2017-02-19 16:23 | RADIOLOGY REPORT (SQ) ---
EXAM DESCRIPTION: CAROTID DOPPLER COMPLETED DATE/TIME: 02/19/2017 4:13 pm REASON FOR STUDY: acute neurologic syndrome COMPARISON: None. TECHNIQUE: Grayscale ultrasound, Doppler velocity and spectra, and color Doppler images acquired of the extra-cranial carotid and vertebral arteries. Images stored on PACS. LIMITATIONS: None. FINDINGS: RIGHT CAROTID CCA Velocities: Within normal limits. ICA Velocities Peak systolic 0.98 m/s. End diastolic 0.2 5 m/s. Proximal ICA/CCA peak systolic ratio 0.8. Spectra normal. No significant plaque. LEFT CAROTID CCA Velocities: Within normal limits. ICA Velocities Peak systolic 0.98 m/s. End diastolic 0.25 m/s. Proximal ICA/CCA peak systolic ratio 0.8. Spectra normal. No significant plaque. VERTEBRAL ARTERIES: Antegrade flow. Normal waveforms. SUBCLAVIAN ARTERIES: No finding. OTHER: No other significant finding. IMPRESSION: NO HEMODYNAMICALLY SIGNIFICANT STENOSIS. COMMENT: Quality ID #[id number]: Velocity criteria are extrapolated from the diameter data as defined by t he Society of Radiologists in Ultrasound Consensus Conference. Radiology 2003: 229; 340-346. TECHNICAL DOCUMENTATION: JOB ID: [id number] [employer]- All Rights Reserved
--- NOTE | 2017-02-19 16:52 | XCELERA REPORT ---
[address] [address] Transthoracic Echocardiogram Report Name: CONSUELO BARCLAY SR Age: 66 yrs Gender: Male : 1950 Patient Status: Inpatient Patient Location: [address] [place] [address] Study Date: 02/19/2017 03:37 PM Height: 69 in Weight: 184 lb BSA: 2.0 m2 Procedure: A complete two-dimensional transthoracic echocardiogram was performed (2D, M-mode, spectral and color flow Doppler). The study was technically adequate with some images being suboptimal in quality. Reason For Study: Syncope Ordering Physician: DANIELA PACHECO Performed By: Christianne Hernández Interpretation Summary The left ventricular ejection fraction is within normal limits. There is mild to moderate concentric left ventricular hypertrophy. The left ventricle is grossly normal size. Doppler measurements suggest pseudonormalized left ventricular relaxation, which is associated with grade II/IV or mild to moderate diastolic dysfunction Wall motion cannot be accurately commented on, but no definite regional wall motion abnormalities noted. The right ventricular systolic function is normal. Borderline left atrial enlargement. The right atrium is normal in size There is a trace to mild amount of mitral regurgitation There is no mitral valve stenosis. There is a trace amount of aortic regurgitation There is no aortic valve stenosis There is a trace or physiologic amount of tricuspid regurgitation Tricuspid regurgitation jet envelope not well defined to measure RV systolic pressure accurately. There is no pericardial effusion. MMode/2D Measurements & Calculations RVDd: 2.5 cm LVIDd: 4.6 cm FS: 40.6 % Ao root diam: 3.6 cm IVSd: 1.2 cm LVIDs: 2.7 cm EDV(Teich): 98.9 ml LVPWd: 1.2 cm ESV(Teich): 28.3 ml Ao root area: 9.9 cm2 EF(Teich): 71.4 % LA dimension: 3.4 cm LVOT diam: 2.1 cm LVOT area: 3.6 cm2 Doppler Measurements & Calculations MV E max storm: MV P1/2t max storm: Ao V2 max: LV V1 max P.2 cm/sec 61.2 cm/sec 143.0 cm/sec 7.9 mmHg MV A max storm: MV P1/2t: 67.0 msec Ao max PG: LV V1 max: 93.3 cm/sec MVA(P1/2t): 3.3 cm2 8.2 mmHg 140.9 cm/sec MV E/A: 0.65 MV dec slope: HODAN(V,D): 3.6 cm2 267.6 cm/sec2 PA V2 max: 91.3 cm/sec PA max P.3 mmHg Left Ventricle The left ventricle is grossly normal size. There is mild to moderate concentric left ventricular hypertrophy. The left ventricular ejection fraction is within normal limits. Doppler measurements suggest pseudonormalized left ventricular relaxation, which is associated with grade II/IV or mild to moderate diastolic dysfunction. Wall motion cannot be accurately commented on, but no definite regional wall motion abnormalities noted. Right Ventricle The right ventricle is grossly normal size. There is normal right ventricular wall thickness. The right ventricular systolic function is normal. Atria The right atrium is normal in size. Borderline left atrial enlargement. Interarterial septum not well visualized and not well dopplered. Cannot comment on ASD/PFO presence. Mitral Valve The mitral valve is grossly normal. There is no mitral valve stenosis. There is a trace to mild amount of mitral regurgitation. Aortic Valve The aortic valve is not well visualized secondary to technical limitations. There is no aortic valve stenosis. There is a trace amount of aortic regurgitation. Tricuspid Valve The tricuspid valve is not well visualized secondary to technical limitations. There is no tricuspid stenosis. There is a trace or physiologic amount of tricuspid regurgitation. Tricuspid regurgitation jet envelope not well defined to measure RV systolic pressure accurately. Pulmonic Valve The pulmonic valve is not well visualized. Great Vessels The aortic root is not well visualized. The inferior vena cava was not well visualized. Effusions There is no pericardial effusion. : DANIELA PACHECO > Latoya De Dios
[2017-02-19 17:30] VITALS: BP 161/70
--- NOTE | 2017-02-20 06:02 | EKG REPORT ---
SEVERITY:- ABNORMAL ECG - SINUS RHYTHM NONSPECIFIC INTRAVENTRICULAR CONDUCTION DELAY PROBABLE INFERIOR INFARCT, AGE INDETERMINATE : Confirmed by: Ilene Whaley MD 20-Feb-2017 06:01:40
--- NOTE | 2017-03-05 07:40 | PDOC DISCHARGE SUMMARY ---
General - Admit/Disc Date/PCP Admission Date/Primary Care Provider: 02/18/17 22:06 CAMRYN BEARDEN MD Discharge Date: 02/19/17 - Discharge Diagnosis (1) Diabetes Is this a current diagnosis for this admission?: Yes (2) Hypertensive emergency Is this a current diagnosis for this admission?: Yes (3) Syncope Is this a current diagnosis for this admission?: Yes - Additional Information Resuscitation Status: Full Code Discharge Diet: Cardiac, Diabetic Discharge Activity: Balance Activity w/Rest Home Medications: Aspirin [Aspirin EC] 81 mg PO DAILY 12/13/16 Atorvastatin Calcium 80 mg PO QHS 12/13/16 Cholecalciferol (Vitamin D3) [Vitamin D3 1000 Unit Tablet] 1,000 unit PO BID Isosorbide Mononitrate [Imdur 60 mg Tablet.er] 60 mg PO DAILY 12/13/16 Lisinopril/Hydrochlorothiazide [Lisinopril-Hctz 20-12.5 mg Tab] 1 each PO BID Meclizine HCl 25 mg PO TID 12/13/16 Metoprolol Tartrate 100 mg PO BID 12/13/16 Amlodipine Besylate [Norvasc 10 mg Tablet] 10 mg PO DAILY 02/18/17 Finasteride [Proscar 5 mg Tablet] 5 mg PO DAILY 02/18/17 Glipizide 5 mg PO DAILY 02/18/17 Trazodone HCl 100 mg PO QHS 02/18/17 History of Present Illness History of Present Illness: CONSUELO BARCLAY SR is a 66 year old male with a past medical history of hypertension and several previous CVAs who presents after sudden episode of lightheadedness and "blacking out" when trying to stand up. No documentation of injury, limb shaking or incontinence. He is brought to the emergency room for evaluation found to have a blood pressure of 253/110 in sinus rhythm. He receives IV hydralazine, CT of the head shows old CVA only. He is currently asymptomatic and referred to the hospitalist for admission. Patient denies recent change in medications, denies [id number] medication use and is otherwise felt well. Hospital Course Hospital Course: The patient was brought in for syncope and hypertensive emergency. He was treated with intravenous hydralazine initially. Once stabilized, his outpatient oral medications were restarted with the exception of hydrochlorothiazide and lisinopril. The patient's blood pressure came down to the normal range very quickly. He is completely asymptomatic at this time. Troponins were slightly positive. This is likely secondary to the emergent hypertension. The patient did have a stat echocardiogram. The preliminary report is that the patient has a normal ejection fraction with mild to moderate left ventricular hypertrophy and no significant valvular disease. Carotid Dopplers were ordered and there is no hemodynamically significant stenosis. The patient will make a timely follow-up appointment this week with his outpatient nephrologist. I did not augment the patient's outpatient regimen at discharge. He was not receiving all of his outpatient medications during this brief hospitalization and his current blood pressure is 138/54. The patient states that he has been taking all of his medications, but, we need to ensure compliance prior to increasing the doses of his medications. Laboratory data is significant for a slightly elevated LDL at 120. Physical Exam Vital Signs: Temp Pulse Resp BP Pulse Ox 97.9 F 66 18 138/54 H 92 02/19/17 11:25 02/19/17 14:35 02/19/17 14:35 02/19/17 11:25 02/19/17 14:35 Intake & Output 02/18/17 02/19/17 02/20/17 06:59 06:59 06:59 Intake Total 245 480 Output Total 550 Balance -305 480 Weight 83.5 kg Additional comments: Patient is an extremely pleasant white male. He does not appear to be in any distress. His cognition is normal. Cranial nerves II through XII are intact. The patient's lungs are clear to auscultation bilaterally. Cardiac exam is regular without murmurs, gallops or rubs. The abdomen is soft and flat. Bowel sounds are noted in the lower quadrants. Patient does not have guarding or rebound noted and there are no hernias or masses present. The lower extremities are warm to touch without edema. The skin is warm dry and intact without lesions or rashes. The patient's neurological exam is nonfocal. The patient follows all commands. He moves all 4 extremities. His gait and station are normal. Results Laboratory Results: 02/19/17 02:03 02/19/17 02:03 02/19/17 02/19/17 02/19/17 02:03 02:03 02:03 WBC 11.0 H RBC 5.46 Hgb 15.9 Hct 45.3 MCV 83 MCH 29.2 MCHC 35.2 RDW 14.1 H Plt Count 253 Seg Neutrophils % 70.9 Lymphocytes % 16.1 Monocytes % 8.5 Eosinophils % 3.3 Basophils % 1.2 Absolute Neutrophils 7.8 Absolute Lymphocytes 1.8 Absolute Monocytes 0.9 Absolute Eosinophils 0.4 Absolute Basophils 0.1 Sodium 143.8 Potassium 3.8 Chloride 103 Carbon Dioxide 26 Anion Gap 15 BUN 18 Creatinine 1.18 Est GFR ( Amer) > 60 Est GFR (Non-Af Amer) > 60 Glucose 146 H Calcium 9.8 Triglycerides 125 Cholesterol 186.57 LDL Cholesterol Direct 120 H VLDL Cholesterol 25.0 HDL Cholesterol 47 02/19/17 02/19/17 02/19/17 02:03 02:03 07:51 Creatine Kinase 182 H 170 CK-MB (CK-2) 3.02 Troponin I 0.018 02/19/17 02/19/17 02/19/17 07:51 15:01 15:01 Creatine Kinase 181 H CK-MB (CK-2) 2.92 2.92 Troponin I < 0.012 0.075 Impressions: Chest X-Ray 02/18/17 19:23 IMPRESSION: NO ACUTE RADIOGRAPHIC FINDING IN THE CHEST. Head CT 02/18/17 19:23 IMPRESSION: Stable CT appearance of the brain, again demonstrating left frontal encephalomalacia with ex vacuo dilatation of the frontal horn of the left lateral ventricle, consistent with sequela of remote ischemic injury. No acute findings. EVIDENCE OF ACUTE STROKE: NO. Carotid Doppler Study 02/19/17 11:01 IMPRESSION: NO HEMODYNAMICALLY SIGNIFICANT STENOSIS. Plan Discharge Plan: 1. Follow-up with nephrologist in 1 week 2. Discharge diet should be carbohydrate controlled with 2 g sodium limitation Time Spent: Less than 30 Minutes
== END 2017-02-19 17:50 | disposition home or self-care (01) ==
LOC: ER 19:06 → EH 22:06 → 3S 02-19 00:05
PROVIDERS: ADMIT Internal Medicine; ATTEND Internal Medicine
DX: I16.1 Hypertensive emergency (principal); R55 Syncope and collapse; E11.9 Type 2 diabetes mellitus without complications; F17.210 Nicotine dependence, cigarettes, uncomplicated; I25.2 Old myocardial infarction; Z79.899 Other long term (current) drug therapy; Z79.82 Long term (current) use of aspirin; Z86.73 Personal history of transient ischemic attack (TIA), and cerebral infarction without residual deficits; Z90.49 Acquired absence of other specified parts of digestive tract; Z82.49 Family history of ischemic heart disease and other diseases of the circulatory system; Z82.3 Family history of stroke; Z79.84 Long term (current) use of oral hypoglycemic drugs
CPT/HCPCS: 93005; 99291; 96374; 36415 ×2; 82553 ×2; 82962; 82550 ×2; 84443; 85025 ×2; 85610; 85730; 80048; 80053; 84484 ×2; 80307; 83036; 80061; 83880; 93306; 93880; 71010; 70450; 93010; G0378 ×2; J1940; J0360 ×2

== ENCOUNTER 2020-01-11 09:19 | Inpatient (IN) | payer OTHER ==
--- NOTE | 2020-01-11 09:56 | RADIOLOGY REPORT (SQ) ---
EXAM DESCRIPTION: CT HEAD WITHOUT IMAGES COMPLETED DATE/TIME: 01/11/2020 9:33 am REASON FOR STUDY: s/s stroke COMPARISON: CT brain 03/05/2016 TECHNIQUE: Axial images acquired through the brain without intravenous contrast. Images reviewed wi th bone, brain and subdural windows. Additional sagittal and coronal reconstructions were generated. Images stored on PACS. All CT scanners at this facility use dose modulation, iterative reconstruction, and/or weight based d osing when appropriate to reduce radiation dose to as low as reasonably achievable (ALARA). [facility]: Dose Right [facility]: CareDose [facility]: Dose Right [facility]: Teradose 4D [facility]: Smart [employer] RADIATION DOSE: CT Rad equipment meets quality standard of care and radiation dose reduction techniq ues were employed. CTDIvol: 53.2 mGy. DLP: 937 mGy-cm. mGy. LIMITATIONS: None. FINDINGS: VENTRICLES: Normal size and contour. CEREBRUM: Old infarct left frontal cortex and subcortical white matter with enlargement of the adjace nt left frontal horn lateral ventricle. No CT evidence of acute large territory change, acute intracranial hemorrhage, mass effect, or midlin e shift CEREBELLUM: No masses. No hemorrhage. No alteration of density. No evidence for acute infarction. EXTRAAXIAL SPACES: No fluid collections. No masses. ORBITS AND GLOBE: No intra- or extraconal masses. Post bilateral cataract surgery CALVARIUM: No fracture. PARANASAL SINUSES: No fluid or mucosal thickening. SOFT TISSUES: No mass or hematoma. OTHER: No other significant finding. IMPRESSION: Old left frontal infarct. No acute finding EVIDENCE OF ACUTE STROKE: NO. COMMENT: Quality ID # [id number]: Final reports with documentation of one or more dose reduction techniques (e.g., Automated exposure control, adjustment of the mA and/or kV according to patient size, use of iterative reconstruction technique) TECHNICAL DOCUMENTATION: JOB ID: [id number] 2010 [employer]- All Rights Reserved Reading location - IP/workstation name: [email or web address]
[2020-01-11 09:58] LABS: ABSOLUTE BASOPHILS # (AUTO) 0.1 10^3/uL (0.0-0.2); ABSOLUTE EOSINOPHILS # (AUTO) 0.2 10^3/uL (0.0-0.6); ABSOLUTE LYMPHOCYTES (AUTO) 1.4 10^3/uL (0.5-4.7); ABSOLUTE MONOCYTES (AUTO) 0.5 10^3/uL (0.1-1.4); ABSOLUTE NEUT (AUTO) 4.3 10^3/uL (1.7-8.2); BASOPHILS % (AUTO) 1.2 % (0-2); EOSINOPHILS % (AUTO) 3.2 % (0-6); HEMATOCRIT 44.4 % (37.9-51.0); HEMOGLOBIN 16.1 g/dL (13.5-17.0); LYMPHOCYTES % (AUTO) 22.1 % (13-45); MEAN CORPUSCULAR HEMOGLOBIN 30.2 pg (27.0-33.4); MEAN CORPUSCULAR HGB CONC 36.3 g/dL (32.0-36.0); MEAN CORPUSCULAR VOLUME 83 fl (80-97); MONOCYTES % (AUTO) 7.2 % (3-13); PLATELET COUNT 233 10^3/uL (150-450); RED BLOOD COUNT 5.32 10^6/uL (4.35-5.55); SEGMENTED NEUTROPHILS % (AUTO) 66.3 % (42-78); TOTAL CELLS COUNTED % (AUTO) 100 %; WHITE BLOOD COUNT 6.5 10^3/uL (4.0-10.5)
--- NOTE | 2020-01-11 09:58 | EKG REPORT ---
SEVERITY:- ABNORMAL ECG - SINUS RHYTHM NONSPECIFIC INTRAVENTRICULAR CONDUCTION DELAY PROBABLE INFERIOR INFARCT, AGE INDETERMINATE : Confirmed by: Latoya De Dios 11-Jan-2020 09:57:57
[2020-01-11 10:02] LABS: INTERNATIONAL RATION (INR) 0.95; PARTIAL THROMBOPLASTIN TIME 27.5 SEC (23.5-35.8); PROTHROMBIN TIME 12.9 SEC (11.4-15.4)
[2020-01-11] MEDS ORDERED: LABETALOL HCL INJ 20 MG/4 ML DISP.SYRIN IV ONE (10:02)
--- NOTE | 2020-01-11 10:17 | RADIOLOGY REPORT (SQ) ---
EXAM DESCRIPTION: CHEST SINGLE VIEW IMAGES COMPLETED DATE/TIME: 01/11/2020 8:41 am REASON FOR STUDY: s/s stroke COMPARISON: None. EXAM PARAMETERS: NUMBER OF VIEWS: One view. TECHNIQUE: Single frontal radiographic view of the chest acquired. RADIATION DOSE: NA LIMITATIONS: None. FINDINGS: LUNGS AND PLEURA: No opacities, masses or pneumothorax. No pleural effusion. MEDIASTINUM AND HILAR STRUCTURES: No masses. Contour normal. HEART AND VASCULAR STRUCTURES: Heart normal in size. Normal vasculature. BONES: No acute findings. HARDWARE: None in the chest. OTHER: No other significant finding. IMPRESSION: NO ACUTE RADIOGRAPHIC FINDING IN THE CHEST. TECHNICAL DOCUMENTATION: JOB ID: [id number] 2010 [employer]- All Rights Reserved Reading location - IP/workstation name: [email or web address]
[2020-01-11 10:20] LABS: ALBUMIN 4.6 g/dL (3.5-5.0); ALKALINE PHOSPHATASE 72 U/L (38-126); ANION GAP 12 (5-19); ASPARTATE AMINO TRANSFERASE 26 U/L (17-59); BILIRUBIN,DIRECT 0.3 mg/dL (0.0-0.4); BILIRUBIN,TOTAL 0.7 mg/dL (0.2-1.3); BLOOD UREA NITROGEN 14 mg/dL (7-20); CALCIUM 9.6 mg/dL (8.4-10.2); CARBON DIOXIDE 24 mmol/L (22-30); CHLORIDE 102 mmol/L (98-107); CREATINE KINASE 218 U/L (55-170); GLUCOSE 142 mg/dL (75-110); POTASSIUM 3.8 mmol/L (3.6-5.0); TOTAL PROTEIN 6.9 g/dL (6.3-8.2)
[2020-01-11 10:31] LABS: CREATINE KINASE MB 2.25 ng/mL (<4.55)
[2020-01-11] MEDS ORDERED: HYDRALAZINE HCL INJ/PF 20 MG/1 ML SDV IV ONE (10:32)
[2020-01-11 10:33] LABS: TROPONIN I < 0.012 ng/mL
--- NOTE | 2020-01-11 13:32 | RADIOLOGY REPORT (SQ) ---
EXAM DESCRIPTION: MRI HEAD WITHOUT; MRA HEAD WITHOUT IMAGES COMPLETED DATE/TIME: 01/11/2020 12:48 pm; 01/11/2020 12:49 pm REASON FOR STUDY: altered mental status/left side weakness; left siude weakness/Altered Mental stat us COMPARISON: None. TECHNIQUE: Multiplanar imaging includes non-contrasted T1, T2, FLAIR, and diffusion with ADC map seq uences. [place] MRA exam was performed, 3D [id number] acquisition. Source data and maximum inte nsity projected images were reviewed. Images stored on PACS. LIMITATIONS: None. FINDINGS: ANATOMY: Normal vascular flow voids. Pituitary fossa normal. CSF SPACES: Enlarged left frontal horn lateral ventricle from frontal encephalomalacia no hemorrhage CEREBRUM: Focal encephalomalacia anterior left frontal lobe with paucity of white matter and enlarged left frontal horn lateral ventricle. This could be due to remote infarct or trauma. Diffusion-weighted images are negative for acute ischemic change. No acute intracranial hemorrhage, mass effect, or midline shift. POSTERIOR FOSSA: No signal alteration. No hemorrhage. No edema, masses or mass effect. Internal fernanda tory canals, cerebello-pontine angles, mastoids normal. DIFFUSION IMAGING: Negative for acute or sub-acute infarction. ORBITS: No masses. Globes post cataract surgery PARANASAL SINUSES: No fluid levels. Mucosa normal. [place] MRA: No [place] stenosis, vascular malformation, or aneurysm. No other sig nificant finding. IMPRESSION: Old encephalomalacia left frontal lobe. No acute infarct. Unremarkable [place] MRA exam EVIDENCE OF ACUTE STROKE: NO. TECHNICAL DOCUMENTATION: JOB ID: [id number] 2010 [employer]- All Rights Reserved Reading location - IP/workstation name: [id number]
--- NOTE | 2020-01-11 13:32 | RADIOLOGY REPORT (SQ) ---
EXAM DESCRIPTION: MRI HEAD WITHOUT; MRA HEAD WITHOUT IMAGES COMPLETED DATE/TIME: 01/11/2020 12:48 pm; 01/11/2020 12:49 pm REASON FOR STUDY: altered mental status/left side weakness; left siude weakness/Altered Mental stat us COMPARISON: None. TECHNIQUE: Multiplanar imaging includes non-contrasted T1, T2, FLAIR, and diffusion with ADC map seq uences. [place] MRA exam was performed, 3D [id number] acquisition. Source data and maximum inte nsity projected images were reviewed. Images stored on PACS. LIMITATIONS: None. FINDINGS: ANATOMY: Normal vascular flow voids. Pituitary fossa normal. CSF SPACES: Enlarged left frontal horn lateral ventricle from frontal encephalomalacia no hemorrhage CEREBRUM: Focal encephalomalacia anterior left frontal lobe with paucity of white matter and enlarged left frontal horn lateral ventricle. This could be due to remote infarct or trauma. Diffusion-weighted images are negative for acute ischemic change. No acute intracranial hemorrhage, mass effect, or midline shift. POSTERIOR FOSSA: No signal alteration. No hemorrhage. No edema, masses or mass effect. Internal fernanda tory canals, cerebello-pontine angles, mastoids normal. DIFFUSION IMAGING: Negative for acute or sub-acute infarction. ORBITS: No masses. Globes post cataract surgery PARANASAL SINUSES: No fluid levels. Mucosa normal. [place] MRA: No [place] stenosis, vascular malformation, or aneurysm. No other sig nificant finding. IMPRESSION: Old encephalomalacia left frontal lobe. No acute infarct. Unremarkable [place] MRA exam EVIDENCE OF ACUTE STROKE: NO. TECHNICAL DOCUMENTATION: JOB ID: [id number] 2010 [employer]- All Rights Reserved Reading location - IP/workstation name: [id number]
--- NOTE | 2020-01-11 13:35 | RADIOLOGY REPORT (SQ) ---
EXAM DESCRIPTION: MRA NECK WITHOUT IMAGES COMPLETED DATE/TIME: 01/11/2020 12:48 pm REASON FOR STUDY: left siude weakness/Altered Mental status COMPARISON: CT brain same date MRI brain, MRA exam [place] same date TECHNIQUE: Axial 2-D volume acquisition imaging through the extracranial carotid and vertebral arter ies with reformatting using 3-D MIPS. LIMITATIONS: None. FINDINGS: RIGHT CAROTID ARTERY: No stenosis or occlusive changes. Limited visualization of the orig in. LEFT CAROTID ARTERY: No stenosis or occlusive changes. Limited visualization of the origin. VERTEBRAL ARTERY: The extracranial portions of the vertebral basilar system are preserved without zara nosis. No aneurysmal dilatation or dissection is seen. OTHER: No other significant finding. IMPRESSION: NO SIGNIFICANT STENOSIS. COMMENT: Quality ID #[id number]: Measurements of distal internal carotid diameter were used as the denomin ator for stenosis measurement. TECHNICAL DOCUMENTATION: JOB ID: [id number] 2010 [employer]- All Rights Reserved Reading location - IP/workstation name: [id number]
[2020-01-11 14:53] LABS: URINE AMPHETAMINES SCREEN NEGATIVE; URINE BARBITURATES SCREEN NEGATIVE; URINE BENZODIAZEPINES SCREEN NEGATIVE; URINE COCAINE SCREEN NEGATIVE; URINE MARIJUANA (THC) SCREEN NEGATIVE; URINE METHADONE SCREEN NEGATIVE; URINE PHENCYCLIDINE SCREEN NEGATIVE
[2020-01-11] MEDS ORDERED: PANTOPRAZOLE SODIUM 20 MG TABLET.DR PO SCH (16:30)
--- NOTE | 2020-01-11 17:41 | ER Document Report ---
Entered by MATEO WILSON SCRIBE 01/11/20 1000 Acting as scribe for:ATIYA ORDONEZ MD ED Neuro Symptoms/Deficit - General Stated Complaint: ALTERED MENTAL STATUS Primary Care Provider: CAMRYN BEARDEN MD [NO LOCAL MD] - Follow up as needed Mode of Arrival: Ambulatory Information source: Patient, Emergency Med Personnel, [facility] Records Cannot obtain history due to: Altered mental status Notes: This 69 year old male patient with uncontrolled hypertension and TIAs presents to the emergency department today with complaints of altered mental status with a last known well of some point last evening. EMS reports that the patient was seen walking this morning at 6:00 AM by his and she thought he seemed unbalanced. EMS mentions that when they arrived on scene the patient was "unresponsive and staring off" and would not talk or answer questions. EMS mentions that in route the patient began answering simple questions and then stopped and did not talk the rest of the ride here. His blood pressure was 230s/110 on arrival here. History is limited secondary to patient's mental status. TRAVEL OUTSIDE OF THE [place] IN LAST 30 DAYS: No - Related Data Allergies/Adverse Reactions: diazepam [From Valium] Allergy (Intermediate, Verified 01/05/17 07:40) RASH lorazepam [From Ativan] Allergy (Intermediate, Verified 01/05/17 07:40) RASH hydrocodone [From Lortab] Adverse Reaction (Intermediate, Verified 01/05/17 07:40) NAUSEA VOMITING ibuprofen [From Motrin] Adverse Reaction (Intermediate, Verified 01/05/17 07:40) NAUSEA VOMITING Past Medical History - General Information source: Emergency Med Personnel, [facility] Records Cannot obtain history due to: Altered mental status - Social History Smoking Status: Current Every Day Smoker Cigarette use (# per day): Yes Lives with: Spouse/Significant other Family History: CVA, Hypertension - Past Medical History Cardiac Medical History: Reports: Hx Heart Attack - 'S, Hx Hypertension - medication Pulmonary Medical History: Reports: Hx COPD Endocrine Medical History: Reports: Hx Diabetes Mellitus Type 2 GI Medical History: Reports: Hx Ulcer - LATE Past Surgical History: Reports: Hx Appendectomy, Hx Cardiac Surgery - stent x2, Hx Cholecystectomy, Hx Orthopedic Surgery - left and right rotator cuff - Immunizations Hx Diphtheria, Pertussis, Tetanus Vaccination: Yes Review of Systems - Review of Systems -: Yes ROS unobtainable due to patient's medical condition Neurological/Psychological: denies: Headaches Physical Exam - Vital signs Vitals: Pulse Resp BP Pulse Ox 66 16 232/84 H 97 01/11/20 09:21 01/11/20 09:21 01/11/20 09:21 01/11/20 09:21 - General General appearance: Other - confused, does not respond - HEENT Head: Normocephalic, Atraumatic Eyes: Normal Conjunctiva: Normal - Respiratory Respiratory status: No respiratory distress Chest status: Nontender Breath sounds: Normal - Cardiovascular Rhythm: Regular Heart sounds: Normal auscultation Murmur: No - Abdominal Inspection: Normal Distension: No distension Bowel sounds: Normal - Extremities General upper extremity: Nontender. No: Edema General lower extremity: Nontender. No: Edema - Neurological Cognition: Confused Speech: Other - initially aphasic - Skin Skin Temperature: Warm Skin Moisture: Dry Skin Color: Normal Course - Re-evaluation Re-evalutation: 01/11/20 14:36 Patient arousal status is back to normal patient is alert oriented and speaking in clear sentences moving all extremities. She still has dizziness and noted walking with a weakness in the left side. - Vital Signs Vital signs: Temp Pulse Resp BP Pulse Ox 97.7 F 68 17 140/70 H 99 01/11/20 15:01 01/11/20 15:00 01/11/20 17:01 01/11/20 17:00 01/11/20 15:00 Patient with systolic diastolic hypertension. - Laboratory Result Diagrams: 01/11/20 09:45 01/11/20 09:45 Laboratory results interpreted by me: 01/11/20 01/11/20 01/11/20 09:45 09:45 09:51 MCHC 36.3 H Glucose 142 H POC Glucose 137 H Creatine Kinase 218 H 01/11/20 14:31 01/11/20 09:45 01/11/20 09:45 MCV 83 fl (80-97) 01/11/20 09:45 MCH 30.2 pg (27.0-33.4) 01/11/20 09:45 MCHC 36.3 g/dL (32.0-36.0) H 01/11/20 09:45 RDW 14.0 % (11.5-14.0) 01/11/20 09:45 Seg Neutrophils % 66.3 % (42-78) 01/11/20 09:45 Chloride 102 mmol/L (98-107) 01/11/20 09:45 Carbon Dioxide 24 mmol/L (22-30) 01/11/20 09:45 Anion Gap 12 (5-19) 01/11/20 09:45 Est GFR ( Amer) > 60 (>60) 01/11/20 09:45 Glucose 142 mg/dL (75-110) H 01/11/20 09:45 Calcium 9.6 mg/dL (8.4-10.2) 01/11/20 09:45 Total Bilirubin 0.7 mg/dL (0.2-1.3) 01/11/20 09:45 AST 26 U/L (17-59) 01/11/20 09:45 Alkaline Phosphatase 72 U/L (38-126) 01/11/20 09:45 Total Protein 6.9 g/dL (6.3-8.2) 01/11/20 09:45 Albumin 4.6 g/dL (3.5-5.0) 01/11/20 09:45 01/11/20 01/11/20 09:45 09:45 Creatine Kinase 218 H CK-MB (CK-2) 2.25 Troponin I < 0.012 01/11/20 14:36 Laboratories show a mild elevation in CK and troponin less than 0.012 otherwise labs are unremarkable. Patient is a diabetic with a blood sugar 142. - Diagnostic Test Radiology reviewed: Image reviewed, Reports reviewed Radiology results interpreted by me: 01/11/20 14:35 Chest X-Ray 01/11/20 09:21 IMPRESSION: NO ACUTE RADIOGRAPHIC FINDING IN THE CHEST. Head CT 01/11/20 09:21 IMPRESSION: Old left frontal infarct. No acute finding EVIDENCE OF ACUTE STROKE: NO. Head MRI 01/11/20 10:33 IMPRESSION: Old encephalomalacia left frontal lobe. No acute infarct. Unremarkable [place] MRA exam EVIDENCE OF ACUTE STROKE: NO. Brain MRI with MRA 01/11/20 10:34 IMPRESSION: Old encephalomalacia left frontal lobe. No acute infarct. Unremarkable [place] MRA exam EVIDENCE OF ACUTE STROKE: NO. Neck MRA 01/11/20 10:34 IMPRESSION: NO SIGNIFICANT STENOSIS. Review of x-rays and scans show chest x-ray no acute process CT scan of the b rain shows no evidence for an acute stroke patient has had an old left frontal infarct. MRI of head shows old encephalomalacia encephalomalacia of the left frontal lobe no acute infarct unremarkable [place] MRA exam brain MRI shows old encephalomalacia malacia of the left frontal lobe no acute infarct and the [place] shows no blockages or stenosis. MRA of the neck shows no sign ificant stenosis. - EKG Interpretation by Me Additional EKG results interpreted by me: 01/11/20 15:07 Twelve-lead EKG shows a normal sinus rhythm rate of 61 nonspecific intraventricular conduction delay. Probable inferior infarct age indeterminate. [place] interval within normal range QRS interval normal range QT interval normal range left axis deviation no acute STEMI. 01/11/20 15:08 Critical Care Note - Critical Care Note Total time excluding time spent on procedures (mins): 45 - Managing patient with accelerated hypertension emergency with new onset CVA left-sided weakness. Management of patient's blood pressure control and and multiple neurochecks. Discussion with admitting hospitalist team. Discussion with . Need to have a. It shows that the patient did not meet criteria for separate template Discharge - Discharge Clinical Impression: Hypertensive emergency, Diabetes, CVA (cerebral vascular accident) Condition: Fair Disposition: ADMITTED INPATIENT Admitting Provider: Rodo (Hospitalist) Unit Admitted: IMCU Referrals: CAMRYN BEARDEN MD [NO LOCAL MD] - Follow up as needed ED NIH Stroke Scale - NIH Stroke Scale *: 1. NIH scale should be completed with appropriate accompanying assessment tools. *: 2. The NIH should reflect what the patient is capable of doing and should not be coached by the clinician. 1a. Level of Consciousness: 0=Alert;keenly responsive -: 1=Drowsy -: 2=Obtunded -: 3=Coma/unresponsive or reflex to noxious stimuli. 1a. Responses: 1 1b. Orientation Questions: a. What month is it? -: b. How old are you? -: 0=Answers both questions correctly. -: 1=Answers one question correctly or patient is intubated or has orotracheal trauma. -: 2=Answers neither question correctly. 1b. Responses: 2 1c. Response to commands: a. Open and close eyes? -: b. Supervisor [employer] Handling and release hand? -: Credit is given despite weakness. Demonstration of task is permitted. Substitute command if hands cannot be used. -: 0=Performs both tasks correctly -: 1=Performs one task correctly -: 2=Performs neither task correctly 1c. Responses: 1 2. Gaze: Establish eye contact and instruct patient to "Follow my finger" -: 0=Normal -: 1=Partial gaze palsy. Gaze is abnormal in one or both eyes, but where forced deviation or total gaze paresis is not present. -: 2=Forced deviation or total gaze paresis. 2. Responses: 0 3. Visual Wong: Sees fingers in all four quadrants. -: 0=No visual loss. -: 1=Partial hemianopsia. -: 2=Complete hemianopsia. -: 3=Bilateral hemianopsia (including Cortical blindness) 4. Facial Movement: Instruct patient to: -: a. Show me your teeth -: b. Raise your eyebrows -: c. Close your eyes -: d. Smile -: 0=Normal symmetrical movement -: 1=Minor paralysis (flattened nasolabial fold, asymmetry on smiling). -: 2=Partial paralysis (total or near total paralysis of lower face). -: 3=Complete paralysis of upper and lower face 5. Motor functions (left arm): Alternate sides and extend each arm with palms down (90 degrees if sitting or 45 degrees for supine). -: 0=No drift;limb holds for full 10 seconds. -: 1=Drift; limb holds but drifts down before full 10 seconds, but does not hit bed. -: 2=Some effort against gravity; limb cannot get to or maintain position. -: 3=No effort against gravity; limb falls. -: 4=No movement. -: UN=Amputation, joint fusion, explain in comments. 5. Responses (left arm): 3 5. Motor Functions (right arm): Alternate sides and extend each arm with palms down (90 degrees if sitting or 45 degrees for supine). -: 0=No drift;limb holds for full 10 seconds. -: 1=Drift; limb holds but drifts down before full 10 seconds, but does not hit bed. -: 2=Some effort against gravity; limb cannot get to or maintain position. -: 3=No effort against gravity; limb falls. -: 4=No movement. -: UN=Amputation, joint fusion, explain in comments. 5. Responses (right arm): 3 6. Motor Functions (left leg): With patient lying supine, alternate sides and extend each leg (30 degrees always while supine). -: 0=No drift, leg holds position for full 5 seconds -: 1=Drift; leg falls before full 5 seconds but does not hit bed. -: 2=Some effort against gravity, leg falls to bed but some effort against gravity. -: 3=No effort against gravity, leg falls to bed immediately. -: 4=No movement. -: UN=Amputation, joint fusion; explain in comments. 6. Responses (left leg): 3 6. Motor Functions (right leg): With patient lying supine, alternate sides and extend each leg (30 degrees always while supine). -: 0=No drift, leg holds position for full 5 seconds -: 1=Drift; leg falls before full 5 seconds but does not hit bed. -: 2=Some effort against gravity, leg falls to bed but some effort against gravity. -: 3=No effort against gravity, leg falls to bed immediately. -: 4=No movement. -: UN=Amputation, joint fusion; explain in comments. 6. Responses (right leg): 3 7. Limb Ataxia: With eyes open instruct patient to: -: a. "Touch your finger to your nose". -: b. "Touch your heel to your diamond" -: 0=Absent -: 1=Present in one limb. -: 2=Present in two limbs. -: UN=Amputation or joint fusion; explain in comments. 8. Sensory: Test sensation using pinprick or noxious stimuli. Test as many body parts as possible. -: 0=Normal;no sensory loss -: 1=Mile to moderate sensory loss (patient feels pin prick but is less sharp on affected side). -: 2=Severe or total sensory loss. 8. Responses: 2 9. Best Language: Instruct patient to: -: a. "Describe what you see in this picture." -: b. "Name the items in this picture." -: c. "Read these sentences." -: 0=No aphasia, normal -: 1=Mild to moderate aphasia. -: 2=Severe aphasia -: 3=Mute, global aphasia, no usable speech or auditory comprehension. 9. Responses: 1 10. Articulation, Dysarthia: Instruct patient to: -: "Read these words" or "Repeat these words" -: 0=Normal -: 1=Mild to moderate; patient may slur some words but can be understood without difficulty. -: 2=Severe; patients speech so slurred as to be unintelligible in the absence of dysphasia. -: UN=Intubated or other physical barrier, explain in comments. 10. Responses: 2 11. Extinction or inattention: 0=No abnormality -: 1= Visual, tactile, auditory, spatial, or personal inattention or extinction to bilateral simulation in one or the sensory modalities. -: 2=Profound edinson-inattention or edinson-inattention to more than one modality; does not recognize own hand. Total Score: 21 Notes: Patient was quite obtunded on arrival and initial NIH score testing. Patient speech was very slow with expression and usually only 1 word would be expressed which was somewhat slurred. Patient was unable to show motor strength of either upper or lower extremities was unable to smile or follow instructions. Hence the high score on the initial NIH score. Later during the course patient had a response and improvement over his neurological status and his mental status where he became alert oriented speech is clear he is moving all extremities upper and lower and patient was oriented to person place and time. Patient had a normal conversation at this time. Patient still has some residual left-sided weakness on the left upper and lower extremities. Improvement in chart Patient once fully awake patient was very clear on the history of what he remembers happening in the last 24 hours. Patient states that he remembers going to bed last evening after reading a book. And that was the last thing he remembered. Patient does not remember getting up this morning and having any problems until he was noted walking around by his and that he was staring as though he was confused and that he was walking with ataxic gait and not speaking coherently or correctly. So patient really last well-known well time was prior to going to sleep last evening. Therefore patient did not meet any criteria for thrombolytic therapy as well as patient's blood pressure was systolic diastolic hypertension requiring treatment. I personally performed the services described in the documentation, reviewed and edited the documentation which was dictated to the scribe in my presence, and it accurately records my words and actions.
[2020-01-11] MEDS ORDERED: ONDANSETRON HCL INJ/PF 4 MG/2 ML SDV IV PRN (18:38)
[2020-01-11] MEDS ORDERED: ACETAMINOPHEN 325 MG TABLET PO PRN (18:38)
[2020-01-11] MEDS ORDERED: LABETALOL HCL INJ 20 MG/4 ML DISP.SYRIN IV PRN (18:38)
[2020-01-11] MEDS ORDERED: ONDANSETRON 4 MG TAB.RAPDIS PO PRN (18:38)
[2020-01-11] MEDS ORDERED: MECLIZINE HCL 25 MG TABLET PO PRN (18:43)
--- NOTE | 2020-01-11 19:03 | PDOC H&P ---
History of Present Illness Admission Date/PCP: 01/11/20 18:06 [facility] History of Present Illness: CONSUELO BARCLAY SR is a 69 year old male with past medical history significant for HTN, HLD, T2DM, prior CVA with left-sided deficits, prior [place] with coronary stents who presents with a history of strokelike symptoms including severe ataxia/dysarthria/left-sided weakness/confusion/dizziness which occurred at approximately 6 AM on day of admission. Per , patient went to bed in his normal state and awoke with the aforementioned deficits. They state this is never occurred in the past. According to , EMS arrived and checked patient's blood pressure which was in the 280s systolic. They deny patient missing any of his usual medications. On arrival to ED, patient had MRI/MRA/CTA of the head none of which showed any acute findings and did not show stroke other than his old frontal stroke. There were no significant arterial stenoses noted. Labs essentially unremarkable and troponins negative, patient also denied any chest pain. UDS negative. Patient denies any seizure history. PT/OT consulted. Patient completely resolved all symptoms after blood pressure came down from being given IV labetalol and home medications. Patient able to swallow and speak normally and per he is back to his baseline left upper extremity weakness. His only residual deficit is ataxia. Past Medical History Cardiac Medical History: Reports: Coronary Artery Disease, Myocardial Infarction - 'S, Hypertension - medication Pulmonary Medical History: Reports: Chronic Obstructive Pulmonary Disease (COPD) Denies: Asthma Neurological Medical History: Denies: Seizures Endocrine Medical History: Reports: Diabetes Mellitus Type 2 GI Medical History: Denies: Hepatitis, Hiatal Hernia Hematology: Denies: Anemia, Sickle Cell Disease Past Surgical History Past Surgical History: Reports: Appendectomy, Cholecystectomy, Orthopedic Surgery - left and right rotator cuff Denies: Pacemaker Social History Information Source: Patient, Relative, Emergency Med Personnel Lives with: Spouse/Significant other Smoking Status: Former Smoker Frequency of Alcohol Use: None Hx Recreational Drug Use: No Drugs: None Hx Prescription Drug Abuse: No - Advance Directive Resuscitation Status: Full Code Surrogate healthcare decision maker:: Admitting diagnosis: Hypertensive emergency All aspects of code status discussed with patient/POA including cardioversion, chest compressions, and intubation and the patient/POA indicated they wish to be full code MPOA is designated as: Olivia Hamor Time spent: Greater than 16 minutes Family History Family History: CAD, CVA, Hypertension Parental Family History Reviewed: Yes Children Family History Reviewed: Yes Sibling(s) Family History Reviewed.: Yes Medication/Allergy Home Medications: Aspirin [Aspirin EC] 81 mg PO DAILY 12/13/16 Cholecalciferol (Vitamin D3) [Vitamin D3 1000 Unit Tablet] 1,000 unit PO DAILY 12/13/16 Isosorbide Mononitrate [Imdur 60 mg Tablet.er] 60 mg PO DAILY 12/13/16 Lisinopril/Hydrochlorothiazide [Lisinopril-Hctz 20-12.5 mg Tab] 1 each PO DAILY 12/13/16 Meclizine HCl 25 mg PO TID PRN 12/13/16 Metoprolol Tartrate 100 mg PO DAILY 12/13/16 Amlodipine Besylate [Norvasc 10 mg Tablet] 10 mg PO DAILY 02/18/17 Glipizide 5 mg PO DAILY 02/18/17 Trazodone HCl 100 mg PO QHS 02/18/17 Omeprazole 20 mg PO DAILY 01/11/20 Allergies/Adverse Reactions: diazepam [From Valium] Allergy (Intermediate, Verified 01/05/17 07:40) RASH lorazepam [From Ativan] Allergy (Intermediate, Verified 01/05/17 07:40) RASH hydrocodone [From Lortab] Adverse Reaction (Intermediate, Verified 01/05/17 07:40) NAUSEA VOMITING ibuprofen [From Motrin] Adverse Reaction (Intermediate, Verified 01/05/17 07:40) NAUSEA VOMITING Review of Systems All systems: reviewed and no additional remarkable complaints except as stated - Review of systems per HPI, otherwise negative Physical Exam Vital Signs: Temp Pulse Resp BP Pulse Ox 97.7 F 68 17 140/70 H 99 01/11/20 15:01 01/11/20 15:00 01/11/20 17:01 01/11/20 17:00 01/11/20 15:00 Intake & Output 01/10/20 01/11/20 01/12/20 06:59 06:59 06:59 Weight 88.451 kg General appearance: PRESENT: no acute distress, cooperative, well-developed, well-nourished Head exam: PRESENT: atraumatic, normocephalic Eye exam: PRESENT: conjunctiva pink, EOMI. ABSENT: nystagmus, scleral icterus Mouth exam: PRESENT: moist Respiratory exam: PRESENT: clear to auscultation carol. ABSENT: rales, rhonchi, wheezes Cardiovascular exam: PRESENT: RRR. ABSENT: diastolic murmur, rubs, systolic murmur GI/Abdominal exam: PRESENT: normal bowel sounds, soft. ABSENT: distended, guarding, mass, organolmegaly, rebound, tenderness Rectal exam: PRESENT: deferred Neurological exam: PRESENT: alert, awake, oriented to person, oriented to place, oriented to time, oriented to situation, CN II-XII grossly intact, motor sensory deficit - Chronic left upper extremity 4/5 weakness, otherwise strength 5/5 Psychiatric exam: PRESENT: appropriate affect, normal mood Skin exam: PRESENT: dry, intact, warm Results Laboratory Results: 01/11/20 09:45 01/11/20 09:45 01/11/20 01/11/20 09:45 09:45 WBC 6.5 RBC 5.32 Hgb 16.1 Hct 44.4 MCV 83 MCH 30.2 MCHC 36.3 H RDW 14.0 Plt Count 233 Seg Neutrophils % 66.3 Sodium 138.0 Potassium 3.8 Chloride 102 Carbon Dioxide 24 Anion Gap 12 BUN 14 Creatinine 1.21 Est GFR ( Amer) > 60 Glucose 142 H Calcium 9.6 Total Bilirubin 0.7 AST 26 Alkaline Phosphatase 72 Total Protein 6.9 Albumin 4.6 01/11/20 01/11/20 01/11/20 09:45 09:45 15:28 Creatine Kinase 218 H CK-MB (CK-2) 2.25 Troponin I < 0.012 < 0.012 Impressions: Chest X-Ray 01/11/20 09:21 IMPRESSION: NO ACUTE RADIOGRAPHIC FINDING IN THE CHEST. Head CT 01/11/20 09:21 IMPRESSION: Old left frontal infarct. No acute finding EVIDENCE OF ACUTE STROKE: NO. Head MRI 01/11/20 10:33 IMPRESSION: Old encephalomalacia left frontal lobe. No acute infarct. Unremarkable [place] MRA exam EVIDENCE OF ACUTE STROKE: NO. Brain MRI with MRA 01/11/20 10:34 IMPRESSION: Old encephalomalacia left frontal lobe. No acute infarct. Unremarkable [place] MRA exam EVIDENCE OF ACUTE STROKE: NO. Neck MRA 01/11/20 10:34 IMPRESSION: NO SIGNIFICANT STENOSIS. Assessment and Plan - Diagnosis (1) Hypertensive emergency Is this a current diagnosis for this admission?: Yes Plan: Unclear etiology: Strokelike episode with complete resolution of symptoms back to baseline left upper extremity weakness but still has persistent ataxia which is a new symptom MRI/MRA/CTA of head and neck did not show any acute findings, only old stroke Previous carotid ultrasound did not show any significant stenoses Neuro checks Home medications restarted IV labetalol as needed to keep blood pressure less than 180 systolic Endocrinology work-up: Aldosterone renin ratio/catecholamines/metanephrines, consider CT abdomen/pelvis to look for pheochromocytoma (2) Hypertensive encephalopathy Is this a current diagnosis for this admission?: Yes Plan: All deficits resolved back to baseline left upper extremity weakness except for persistent ataxia which is new Blood pressure control as above (3) T2DM (type 2 diabetes mellitus) Qualifiers: Diabetes mellitus intermediate teacher insulin use: without fci use Diabetes mellitus complication status: with circulatory complication Diabetes mellitus complication detail: with other circulatory complications Qualified Code(s): E11.59 - Type 2 diabetes mellitus with other circulatory complications Is this a current diagnosis for this admission?: Yes Plan: Accu-Cheks, low-dose correctional insulin Hold home meds (4) HLD (hyperlipidemia) Is this a current diagnosis for this admission?: Yes Plan: Statin (5) History of stroke Is this a current diagnosis for this admission?: Yes (6) History of [place] (myocardial infarction) Is this a current diagnosis for this admission?: Yes Plan: Status post coronary stents (7) Ataxia Is this a current diagnosis for this admission?: Yes Plan: PT/OT consult (8) Tobacco abuse Is this a current diagnosis for this admission?: Yes Plan: Quit years ago - Time Time Spent with patient: 35 or more minutes Medications reviewed and adjusted accordingly: Yes Anticipated Discharge Disposition: Home with Home Health Anticipated Discharge Timeframe: within 72 hours - Inpatient Certification Based on my medical assessment, after consideration of the patient's comorbidities, presenting symptoms, or acuity I expect that the services needed warrant INPATIENT care.: Yes I certify that my determination is in accordance with my understanding of Medicare's requirements for reasonable and necessary INPATIENT services [42 CFR 412.3e].: Yes Medical Necessity: Significant Comorbidiites Make Outpatient Treatment Too Risky, Need Close Monitoring Due to Risk of Patient Decompensation, Need for Neurological Checks, Risk of Complication if Not Cared For in Hospital, Risk of Diagnosis Which Will Require Inpatient Eval/Care/Monitoring
[2020-01-11] MEDS: INSULIN LISPRO 100 UNIT/ML 3 ML VIAL SUBCUT SCH (22:21)
[2020-01-11] MEDS: ATORVASTATIN CALCIUM 40 MG TABLET PO SCH (22:21)
[2020-01-11] MEDS: TRAZODONE HCL 50 MG TABLET PO SCH (22:21)
[2020-01-12] MEDS: PANTOPRAZOLE SODIUM 20 MG TABLET.DR PO SCH (06:07)
[2020-01-12 06:43] LABS: ABSOLUTE BASOPHILS # (AUTO) 0.1 10^3/uL (0.0-0.2); ABSOLUTE EOSINOPHILS # (AUTO) 0.3 10^3/uL (0.0-0.6); ABSOLUTE LYMPHOCYTES (AUTO) 1.2 10^3/uL (0.5-4.7); ABSOLUTE MONOCYTES (AUTO) 0.5 10^3/uL (0.1-1.4); ABSOLUTE NEUT (AUTO) 4.5 10^3/uL (1.7-8.2); BASOPHILS % (AUTO) 0.8 % (0-2); HEMATOCRIT 41.3 % (37.9-51.0); HEMOGLOBIN 14.6 g/dL (13.5-17.0); LYMPHOCYTES % (AUTO) 17.8 % (13-45); MEAN CORPUSCULAR HEMOGLOBIN 29.8 pg (27.0-33.4); MEAN CORPUSCULAR HGB CONC 35.4 g/dL (32.0-36.0); MEAN CORPUSCULAR VOLUME 84 fl (80-97); MONOCYTES % (AUTO) 8.2 % (3-13); PLATELET COUNT 232 10^3/uL (150-450); RED BLOOD COUNT 4.92 10^6/uL (4.35-5.55); RED CELL DISTRIBUTION WIDTH 13.9 % (11.5-14.0); SEGMENTED NEUTROPHILS % (AUTO) 69.2 % (42-78); TOTAL CELLS COUNTED % (AUTO) 100 %; WHITE BLOOD COUNT 6.5 10^3/uL (4.0-10.5)
[2020-01-12 07:09] LABS: ANION GAP 11 (5-19); BLOOD UREA NITROGEN 18 mg/dL (7-20); CALCIUM 9.5 mg/dL (8.4-10.2); CARBON DIOXIDE 22 mmol/L (22-30); CHLORIDE 103 mmol/L (98-107); CHOLESTEROL 150.17 mg/dL (0-200); GLUCOSE 148 mg/dL (75-110); PHOSPHORUS 3.9 mg/dL (2.5-4.5); POTASSIUM 3.9 mmol/L (3.6-5.0); TRIGLYCERIDES 129 mg/dL (<150)
[2020-01-12 07:31] LABS: DIRECT LDL 100 mg/dL (<100)
[2020-01-12 07:38] LABS: FREE T4 (FREE THYROXINE) 0.94 ng/dL (0.78-2.19)
[2020-01-12 07:51] LABS: THYROID STIMULATING HORMONE 2.79 uIU/mL (0.47-4.68)
[2020-01-12] MEDS ORDERED: LISINOPRIL 10 MG TABLET PO SCH ×2 (10:00)
[2020-01-12] MEDS ORDERED: (PENDING PHARMACY ID) (Lisinopril/Hydrochlorothiazide [Lisinopril-Hctz 20-12.5 Mg Tab] 1 E PO SCH (10:00)
[2020-01-12] MEDS ORDERED: AMLODIPINE BESYLATE 10 MG TABLET PO SCH (10:00)
[2020-01-12] MEDS ORDERED: NIFEDIPINE 30 MG TAB.ER.24 PO SCH (10:00)
[2020-01-12] MEDS: INSULIN LISPRO 100 UNIT/ML 3 ML VIAL SUBCUT SCH ×4 (10:50→23:00)
[2020-01-12] MEDS: ISOSORBIDE MONONITRATE 60 MG TAB.ER.24H PO SCH (10:51)
[2020-01-12] MEDS: HYDROCHLOROTHIAZIDE 12.5 MG TABLET PO SCH (10:52)
[2020-01-12] MEDS: DOCUSATE SODIUM 100 MG CAPSULE PO SCH (10:53)
[2020-01-12] MEDS: ASPIRIN 81 MG TABLET, CHEWABLE PO SCH (10:53)
[2020-01-12] MEDS: NIFEDIPINE 30 MG TAB.ER.24 PO SCH ×2 (10:53→21:59)
[2020-01-12] MEDS: ENOXAPARIN SODIUM INJ 40 MG/0.4 ML DISP.SYRIN SUBCUT SCH (10:54)
--- NOTE | 2020-01-12 15:24 | PDOC PROGRESS REPORT ---
Subjective Subjective:: CONSUELO BARCLAY SR is a 69 year old male with past medical history significant for HTN, HLD, T2DM, prior CVA with left-sided deficits, prior [place] with coronary stents who presents with a history of strokelike symptoms including severe ataxia/dysarthria/left-sided weakness/confusion/dizziness which occurred at approximately 6 AM on day of admission. Per , patient went to bed in his normal state and awoke with the aforementioned deficits. They state this is never occurred in the past. According to , EMS arrived and checked patient's blood pressure which was in the 280s systolic. They deny patient missing any of his usual medications. On arrival to ED, patient had MRI/MRA/CTA of the head none of which showed any acute findings and did not show stroke other than his old frontal stroke. There were no significant arterial stenoses noted. Labs essentially unremarkable and troponins negative, patient also denied any chest pain. UDS negative. Patient denies any seizure history. PT/OT consulted. Patient completely resolved all symptoms after blood pressure came down from being given IV labetalol and home medications. Patient able to swallow and speak normally and per he is back to his baseline left upper extremity weakness. His only residual deficit is ataxia. 01/12/2020 Patient seems to be back to his neurologic baseline. This morning, his blood pressure began rising again and patient was noting having a heaviness sensation in his head and had some difficulty keeping his neck from going limp a few times. This resolved as his blood pressure came back down. I have changed amlodipine to nifedipine and made this twice daily to give him some coverage overnight as I suspect he is a nondipper hypertension patient and likely has escalating blood pressure as he approaches the morning each night. I also increase his lisinopril dose. The endocrinology work-up as started has not com pletely resulted yet. TSH and T4 were notably normal. Reason For Visit: HYPERTENSIVE EMERGENCY,HYPERTENSIVE ENCEPHALOPATHY Physical Exam Vital Signs: Temp Pulse Resp BP Pulse Ox 97.6 F 75 20 189/84 H 98 01/12/20 11:13 01/12/20 12:00 01/12/20 12:00 01/12/20 12:00 01/12/20 12:00 Intake & Output 01/11/20 01/12/20 01/13/20 06:59 06:59 06:59 Intake Total 520 Balance 520 Weight 82.8 kg Exam: General appearance: PRESENT: no acute distress, cooperative, well-developed, well-nourished, states he feels better today overall Head exam: PRESENT: atraumatic, normocephalic Eye exam: PRESENT: conjunctiva pink, EOMI. ABSENT: nystagmus, scleral icterus Mouth exam: PRESENT: moist Respiratory exam: PRESENT: clear to auscultation carol. ABSENT: rales, rhonchi, wheezes Cardiovascular exam: PRESENT: RRR. ABSENT: diastolic murmur, rubs, systolic murmur GI/Abdominal exam: PRESENT: normal bowel sounds, soft. ABSENT: distended, guarding, mass, organolmegaly, rebound, tenderness Rectal exam: PRESENT: deferred Neurological exam: PRESENT: alert, awake, oriented to person, oriented to place, oriented to time, oriented to situation, CN II-XII grossly intact, motor sensory deficit - Chronic left upper extremity 4+/5 weakness notably stronger than yesterday, otherwise strength 5/5 Psychiatric exam: PRESENT: appropriate affect, normal mood Skin exam: PRESENT: dry, intact, warm Results Laboratory Results: 01/12/20 06:10 01/12/20 06:10 01/12/20 01/12/20 01/12/20 06:10 06:10 06:10 WBC 6.5 RBC 4.92 Hgb 14.6 Hct 41.3 MCV 84 MCH 29.8 MCHC 35.4 RDW 13.9 Plt Count 232 Seg Neutrophils % 69.2 Sodium 136.0 L Potassium 3.9 Chloride 103 Carbon Dioxide 22 Anion Gap 11 BUN 18 Creatinine 1.26 H Est GFR ( Amer) > 60 Glucose 148 H Calcium 9.5 Phosphorus 3.9 Magnesium 2.1 Triglycerides 129 Cholesterol 150.17 LDL Cholesterol Direct 100 VLDL Cholesterol 26.0 HDL Cholesterol 33 L TSH 2.79 Free T4 0.94 01/11/20 01/11/20 01/11/20 09:45 09:45 15:28 Creatine Kinase 218 H CK-MB (CK-2) 2.25 Troponin I < 0.012 < 0.012 01/11/20 21:35 Creatine Kinase CK-MB (CK-2) Troponin I < 0.012 Impressions: Chest X-Ray 01/11/20 09:21 IMPRESSION: NO ACUTE RADIOGRAPHIC FINDING IN THE CHEST. Head CT 01/11/20 09:21 IMPRESSION: Old left frontal infarct. No acute finding EVIDENCE OF ACUTE STROKE: NO. Head MRI 01/11/20 10:33 IMPRESSION: Old encephalomalacia left frontal lobe. No acute infarct. Unremarkable [place] MRA exam EVIDENCE OF ACUTE STROKE: NO. Brain MRI with MRA 01/11/20 10:34 IMPRESSION: Old encephalomalacia left frontal lobe. No acute infarct. Unremarkable [place] MRA exam EVIDENCE OF ACUTE STROKE: NO. Neck MRA 01/11/20 10:34 IMPRESSION: NO SIGNIFICANT STENOSIS. Assessment and Plan - Diagnosis (1) Hypertensive emergency Is this a current diagnosis for this admission?: Yes Plan: Unclear etiology: Strokelike episode with complete resolution of symptoms back to baseline left upper extremity weakness but still has persistent ataxia which is a new symptom MRI/MRA/CTA of head and neck did not show any acute findings, only old stroke Previous carotid ultrasound did not show any significant stenoses Neuro checks Home medications restarted IV labetalol as needed to keep blood pressure less than 180 systolic Ordered renal artery ultrasound to look for stenosis Changed amlodipine to nifedipine and made this twice daily to help with overnight hypertension Increased home dose lisinopril Endocrinology work-up: Aldosterone renin ratio/catecholamines/metanephrines, consider CT abdomen/pelvis to look for pheochromocytoma (2) Hypertensive encephalopathy Is this a current diagnosis for this admission?: Yes Plan: All deficits resolved back to baseline left upper extremity weakness except for persistent ataxia which is new Blood pressure control as above No further episodes (3) T2DM (type 2 diabetes mellitus) Qualifiers: Diabetes mellitus exterminator insulin use: without exterminator use Diabetes mellitus complication status: with circulatory complication Diabetes mellitus complication detail: with other circulatory complications Qualified Code(s): E11.59 - Type 2 diabetes mellitus with other circulatory complications Is this a current diagnosis for this admission?: Yes (4) HLD (hyperlipidemia) Is this a current diagnosis for this admission?: Yes (5) History of stroke Is this a current diagnosis for this admission?: Yes (6) History of [place] (myocardial infarction) Is this a current diagnosis for this admission?: Yes (7) Ataxia Is this a current diagnosis for this admission?: Yes (8) Tobacco abuse Is this a current diagnosis for this admission?: Yes - Time Time Spent with patient: 25-34 minutes Medications reviewed and adjusted accordingly: Yes Anticipated Discharge Disposition: Home, Self Care Anticipated Discharge Timeframe: within 48 hours - Inpatient Certification Based on my medical assessment, after consideration of the patient's comorbidities, presenting symptoms, or acuity I expect that the services needed warrant INPATIENT care.: Yes I certify that my determination is in accordance with my understanding of Medicare's requirements for reasonable and necessary INPATIENT services [42 CFR 412.3e].: Yes Medical Necessity: Significant Comorbidiites Make Outpatient Treatment Too Risky, Need Close Monitoring Due to Risk of Patient Decompensation, Need for Neurological Checks, Risk of Complication if Not Cared For in Hospital, Risk of Diagnosis Which Will Require Inpatient Eval/Care/Monitoring
[2020-01-12] MEDS: TRAZODONE HCL 50 MG TABLET PO SCH (21:59)
[2020-01-12] MEDS: ATORVASTATIN CALCIUM 40 MG TABLET PO SCH (21:59)
[2020-01-13 05:04] LABS: ABSOLUTE BASOPHILS # (AUTO) 0.1 10^3/uL (0.0-0.2); ABSOLUTE EOSINOPHILS # (AUTO) 0.3 10^3/uL (0.0-0.6); ABSOLUTE LYMPHOCYTES (AUTO) 1.3 10^3/uL (0.5-4.7); ABSOLUTE MONOCYTES (AUTO) 0.6 10^3/uL (0.1-1.4); ABSOLUTE NEUT (AUTO) 4.2 10^3/uL (1.7-8.2); BASOPHILS % (AUTO) 0.9 % (0-2); EOSINOPHILS % (AUTO) 4.6 % (0-6); HEMATOCRIT 41.2 % (37.9-51.0); HEMOGLOBIN 14.7 g/dL (13.5-17.0); LYMPHOCYTES % (AUTO) 20.4 % (13-45); MEAN CORPUSCULAR HEMOGLOBIN 29.8 pg (27.0-33.4); MEAN CORPUSCULAR HGB CONC 35.7 g/dL (32.0-36.0); MEAN CORPUSCULAR VOLUME 84 fl (80-97); MONOCYTES % (AUTO) 9.1 % (3-13); PLATELET COUNT 204 10^3/uL (150-450); RED BLOOD COUNT 4.93 10^6/uL (4.35-5.55); RED CELL DISTRIBUTION WIDTH 13.7 % (11.5-14.0); TOTAL CELLS COUNTED % (AUTO) 100 %; WHITE BLOOD COUNT 6.4 10^3/uL (4.0-10.5)
[2020-01-13 05:40] LABS: ANION GAP 9 (5-19); BLOOD UREA NITROGEN 18 mg/dL (7-20); CALCIUM 9.4 mg/dL (8.4-10.2); CARBON DIOXIDE 25 mmol/L (22-30); CHLORIDE 103 mmol/L (98-107); GLUCOSE 146 mg/dL (75-110); POTASSIUM 4.1 mmol/L (3.6-5.0)
[2020-01-13] MEDS: PANTOPRAZOLE SODIUM 20 MG TABLET.DR PO SCH (05:58)
[2020-01-13] MEDS: INSULIN LISPRO 100 UNIT/ML 3 ML VIAL SUBCUT SCH ×2 (08:43→12:02)
[2020-01-13] MEDS ORDERED: LISINOPRIL 10 MG TABLET PO ONE (10:45)
[2020-01-13] MEDS ORDERED: LISINOPRIL 10 MG TABLET PO SCH (11:00)
--- NOTE | 2020-01-13 11:33 | RADIOLOGY REPORT (SQ) ---
EXAM DESCRIPTION: U/S LTD DUPLEX ART/MARITZA FLOW IMAGES COMPLETED DATE/TIME: 01/13/2020 11:09 am REASON FOR STUDY: renal COMPARISON: None. TECHNIQUE: Realtime and static grayscale images acquired. Selected color Doppler, velocities and spe ctral images recorded. LIMITATIONS: None. FINDINGS: RIGHT KIDNEY: RENAL ARTERY VELOCITIES: Origin: 68Cm/sec. Mid: 88 Cm/sec.[place]: 59 Cm/sec. Segmental artery [place] 49 cm/sec. RENAL VEIN: Color doppler flow present, patent. VELOCITY RATIO: 0.73. Normal waveforms. KIDNEY: Mild asymmetrically small measuring 10 cm. No significant pathology. Minimally elevated r esistive indices may be related to medical renal disease. LEFT KIDNEY: RENAL ARTERY VELOCITIES: Origin:64Cm/sec. Mid: 70Cm/sec. [place]: 59Cm/sec. Segmental artery velocity 58 cm/sec. RENAL VEIN: Color doppler flow present, patent. VELOCITY RATIO: 0.58. Normal waveforms. KIDNEY: Normal size measuring 12 cm. No significant pathology. Minimally elevated resistive indic es may be related to medical renal disease. BLADDER: Normal. OTHER: Prostatomegaly measuring 5.6 cm. IMPRESSION: NO DOPPLER EVIDENCE OF HEMODYNAMICALLY SIGNIFICANT RENAL ARTERY STENOSIS. COMMENT: NORMAL RENAL ARTERY/AORTA VELOCITY RATIO IS LESS THAN OR EQUAL TO 3.5. TECHNICAL DOCUMENTATION: JOB ID: [id number] 2010 [employer]- All Rights Reserved Reading location - IP/workstation name: [email or web address]
[2020-01-13] MEDS: ENOXAPARIN SODIUM INJ 40 MG/0.4 ML DISP.SYRIN SUBCUT SCH (11:48)
[2020-01-13] MEDS: HYDROCHLOROTHIAZIDE 12.5 MG TABLET PO SCH (11:49)
[2020-01-13] MEDS: DOCUSATE SODIUM 100 MG CAPSULE PO SCH (11:49)
[2020-01-13] MEDS: NIFEDIPINE 30 MG TAB.ER.24 PO SCH (11:50)
[2020-01-13] MEDS: ISOSORBIDE MONONITRATE 60 MG TAB.ER.24H PO SCH (11:51)
[2020-01-13] MEDS: ASPIRIN 81 MG TABLET, CHEWABLE PO SCH (11:51)
[2020-01-13 12:40] VITALS: BP 151/84
[2020-01-13] MEDS ORDERED: INFLUENZA QUAD (6MOS+) 2020-21 VAC 0.5 ML SYR IM ONE (15:00)
--- NOTE | 2020-01-13 15:20 | PDOC DISCHARGE SUMMARY ---
Impression - Admit/DC Date/PCP Admission Date/Primary Care Provider: 01/11/20 18:06 [facility] Discharge Date: 01/13/20 - Discharge Diagnosis (1) Hypertensive emergency Is this a current diagnosis for this admission?: Yes (2) Hypertensive encephalopathy Is this a current diagnosis for this admission?: Yes (3) T2DM (type 2 diabetes mellitus) Is this a current diagnosis for this admission?: Yes (4) HLD (hyperlipidemia) Is this a current diagnosis for this admission?: Yes (5) History of stroke Is this a current diagnosis for this admission?: Yes (6) History of DE (myocardial infarction) Is this a current diagnosis for this admission?: Yes (7) Ataxia Is this a current diagnosis for this admission?: Yes (8) Tobacco abuse Is this a current diagnosis for this admission?: Yes - Additional Information Resuscitation Status: Full Code Discharge Diet: As Tolerated, Cardiac, Diabetic Discharge Activity: Activity As Tolerated, Balance Activity w/Rest Referrals: CAMRYN BEARDEN MD [NO LOCAL MD] - Follow up as needed Prescriptions: Atorvastatin Calcium [Lipitor 40 mg Tablet] 40 mg PO QHS #30 tablet Lisinopril/Hydrochlorothiazide [Lisinopril-Hctz 20-12.5 mg Tab] 1 each PO BID #60 Nifedipine [Procardia XL 30 mg Tablet] 30 mg PO Q12 #60 tab.er.24 Home Medications: Aspirin [Aspirin EC] 81 mg PO DAILY 12/13/16 Cholecalciferol (Vitamin D3) [Vitamin D3 1000 Unit Tablet] 1,000 unit PO DAILY 12/13/16 Isosorbide Mononitrate [Imdur 60 mg Tablet.er] 60 mg PO DAILY 12/13/16 Meclizine HCl 25 mg PO TID PRN 12/13/16 Metoprolol Tartrate 100 mg PO DAILY 12/13/16 Glipizide 5 mg PO DAILY 02/18/17 Trazodone HCl 100 mg PO QHS 02/18/17 Omeprazole 20 mg PO DAILY 01/11/20 Atorvastatin Calcium [Lipitor 40 mg Tablet] 40 mg PO QHS #30 tablet 01/13/20 Lisinopril/Hydrochlorothiazide [Lisinopril-Hctz 20-12.5 mg Tab] 1 each PO BID #60 01/13/20 Nifedipine [Procardia XL 30 mg Tablet] 30 mg PO Q12 #60 tab.er.24 01/13/20 History of Present Illiness History of Present Illness: CONSUELO BARCLAY SR is a 69 year old male with past medical history significant for HTN, HLD, T2DM, prior CVA with left-sided deficits, prior DE with coronary stents who presents with a history of strokelike symptoms including severe ataxia/dysarthria/left-sided weakness/confusion/dizziness which occurred at approximately 6 AM on day of admission. Per , patient went to bed in his normal state and awoke with the aforementioned deficits. They state this is never occurred in the past. According to , EMS arrived and checked pat ient's blood pressure which was in the 280s systolic. They deny patient missing any of his usual medications. On arrival to ED, patient had MRI/MRA/CTA of the head none of which showed any acute findings and did not show stroke other than his old frontal stroke. There were no significant arterial stenoses noted. Labs essentially unremarkable and troponins negative, patient also denied any chest pain. UDS negative. Patient denies any seizure history. PT/OT consulted. Patient completely resolved all symptoms after blood pressure came down from being given IV labetalol and home medications. Patient able to swallow and speak normally and per he is back to his baseline left upper extremity weakness. His only residual deficit is ataxia. Hospital Course Hospital Course: CONSUELO BARCLAY SR is a 69 year old male with past medical history significant for HTN, HLD, T2DM, prior CVA with left-sided deficits, prior DE with coronary stents who presents with a history of strokelike symptoms including severe ataxia/dysarthria/left-sided weakness/confusion/dizziness which occurred at approximately 6 AM on day of admission. Per , patient went to bed in his normal state and awoke with the aforementioned deficits. They state this is never occurred in the past. According to , EMS arrived and checked patient's blood pressure which was in the 280s systolic. They deny patient missing any of his usual medications. On arrival to ED, patient had MRI/MRA/CTA of the head none of which showed any acute findings and did not show stroke oth er than his old frontal stroke. There were no significant arterial stenoses noted. Labs essentially unremarkable and troponins negative, patient also denied any chest pain. UDS negative. Patient denies any seizure history. PT/OT consulted. Patient completely resolved all symptoms after blood pressure came down from being given IV labetalol and home medications. Patient able to swallow and speak normally and per he is back to his baseline left upper extremity weakness. His only residual deficit is ataxia. 01/12/2020 Patient seems to be back to his neurologic baseline. This morning, his blood pressure began rising again and patient was noting having a heaviness sensation in his head and had some difficulty keeping his neck from going limp a few times. This resolved as his blood pressure came back down. I have changed amlodipine to nifedipine and made this twice daily to give him some coverage overnight as I suspect he is a nondipper hypertension patient and likely has es calating blood pressure as he approaches the morning each night. I also increase his lisinopril dose. The endocrinology work-up as started has not completely resulted yet. TSH and T4 were notably normal. On 01/12-day of discharge, patient blood pressure significantly improved and blood pressure regimen was increased to help him get closer to goal. Patient states he is completely back to baseline and would like to go home. He is renal artery/vein ultrasound did not show any significant abnormalities or stenoses. I discussed all of the results and the plans with the patient and his s eparately. Patient will need to keep a log of his blood pressures and check these at least twice a day so that he can bring this data to his PCP. They are arranging a follow-up within 1 week. (1) Hypertensive emergencyresolved Is this a current diagnosis for this admission?: Yes Plan: Unclear etiology: Strokelike episode with complete resolution of symptoms back to baseline left upper extremity weakness but still has persistent ataxia which is a new symptom MRI/MRA/CTA of head and neck did not show any acute findings, only old stroke Previous carotid ultrasound did not show any significant stenoses Neuro checks Home medications restarted IV labetalol as needed to keep blood pressure less than 180 systolic Ordered renal artery ultrasound to look for stenosis Changed amlodipine to nifedipine and made this twice daily to help with overnight hypertension Increased frequency to twice daily of home lisinopril/HCTZ Endocrinology work-up: Aldosterone renin ratio/catecholamines/metanephrines, consider CT abdomen/pelvis to look for pheochromocytoma (2) Hypertensive encephalopathyresolved Is this a current diagnosis for this admission?: Yes Plan: All deficits resolved back to baseline left upper extremity weakness except for persistent ataxia which is new Blood pressure control as above No further episodes (3) T2DM (type 2 diabetes mellitus) Qualifiers: Diabetes mellitus mcc insulin use: without buttermilk drier operator use Diabetes mellitus complication status: with circulatory complication Diabetes mellitus complication detail: with other circulatory complications Qualified Code(s): E11.59 - Type 2 diabetes mellitus with other circulatory complications Is this a current diagnosis for this admission?: Yes (4) HLD (hyperlipidemia) Is this a current diagnosis for this admission?: Yes (5) History of stroke Is this a current diagnosis for this admission?: Yes (6) History of DE (myocardial infarction) Is this a current diagnosis for this admission?: Yes (7) Ataxia Is this a current diagnosis for this admission?: Yes (8) Tobacco abuse Is this a current diagnosis for this admission?: Yes Physical Exam Vital Signs: Temp Pulse Resp BP Pulse Ox 97.6 F 78 21 H 151/84 H 96 01/13/20 11:49 01/13/20 12:00 01/13/20 12:00 01/13/20 12:00 01/13/20 12:00 Intake & Output 01/12/20 01/13/20 01/14/20 06:59 06:59 06:59 Intake Total 520 3050 Output Total 250 Balance 520 2800 Weight 82.8 kg 83 kg Exam: General appearance: PRESENT: no acute distress, cooperative, well-developed, well-nourished, states he feels back to baseline and would like to go home Head exam: PRESENT: atraumatic, normocephalic Eye exam: PRESENT: conjunctiva pink, EOMI. ABSENT: nystagmus, scleral icterus Mouth exam: PRESENT: moist Respiratory exam: PRESENT: clear to auscultation carol. ABSENT: rales, rhonchi, wheezes Cardiovascular exam: PRESENT: RRR. ABSENT: diastolic murmur, rubs, systolic murmur GI/Abdominal exam: PRESENT: normal bowel sounds, soft. ABSENT: distended, guarding, mass, organolmegaly, rebound, tenderness Rectal exam: PRESENT: deferred Neurological exam: PRESENT: alert, awake, oriented to person, oriented to place, oriented to time, oriented to situation, CN II-XII grossly intact, motor sensory deficit - Chronic left upper extremity 4+/5 weakness notably stronger than previously, otherwise strength 5/5 Psychiatric exam: PRESENT: appropriate affect, normal mood Skin exam: PRESENT: dry, intact, warm Results Laboratory Results: WBC 6.4 10^3/uL (4.0-10.5) 01/13/20 04:37 RBC 4.93 10^6/uL (4.35-5.55) 01/13/20 04:37 Hgb 14.7 g/dL (13.5-17.0) 01/13/20 04:37 Hct 41.2 % (37.9-51.0) 01/13/20 04:37 MCV 84 fl (80-97) 01/13/20 04:37 MCH 29.8 pg (27.0-33.4) 01/13/20 04:37 MCHC 35.7 g/dL (32.0-36.0) 01/13/20 04:37 RDW 13.7 % (11.5-14.0) 01/13/20 04:37 Plt Count 204 10^3/uL (150-450) 01/13/20 04:37 Lymph % (Auto) 20.4 % (13-45) 01/13/20 04:37 [place] % (Auto) 9.1 % (3-13) 01/13/20 04:37 Eos % (Auto) 4.6 % (0-6) 01/13/20 04:37 Baso % (Auto) 0.9 % (0-2) 01/13/20 04:37 Absolute Neuts (auto) 4.2 10^3/uL (1.7-8.2) 01/13/20 04:37 Absolute Lymphs (auto) 1.3 10^3/uL (0.5-4.7) 01/13/20 04:37 Absolute Monos (auto) 0.6 10^3/uL (0.1-1.4) 01/13/20 04:37 Absolute Eos (auto) 0.3 10^3/uL (0.0-0.6) 01/13/20 04:37 Absolute Basos (auto) 0.1 10^3/uL (0.0-0.2) 01/13/20 04:37 Seg Neutrophils % 65.0 % (42-78) 01/13/20 04:37 PT 12.9 SEC (11.4-15.4) 01/11/20 09:45 INR 0.95 01/11/20 09:45 APTT 27.5 SEC (23.5-35.8) 01/11/20 09:45 Sodium 136.6 mmol/L (137-145) L 01/13/20 04:37 Potassium 4.1 mmol/L (3.6-5.0) 01/13/20 04:37 Chloride 103 mmol/L (98-107) 01/13/20 04:37 Carbon Dioxide 25 mmol/L (22-30) 01/13/20 04:37 Anion Gap 9 (5-19) 01/13/20 04:37 BUN 18 mg/dL (7-20) 01/13/20 04:37 Creatinine 1.31 mg/dL (0.52-1.25) H 01/13/20 04:37 Est GFR ( Amer) > 60 (>60) 01/13/20 04:37 Est GFR (MDRD) Non-Af 54 (>60) L 01/13/20 04:37 Glucose 146 mg/dL (75-110) H 01/13/20 04:37 POC Glucose 154 mg/dL (70-110) H 01/13/20 11:49 Hemoglobin A1c % 5.8 % (4.7-6.0) 01/12/20 06:10 Calcium 9.4 mg/dL (8.4-10.2) 01/13/20 04:37 Phosphorus 3.9 mg/dL (2.5-4.5) 01/12/20 06:10 Magnesium 2.1 mg/dL (1.6-2.3) 01/12/20 06:10 Total Bilirubin 0.7 mg/dL (0.2-1.3) 01/11/20 09:45 Direct Bilirubin 0.3 mg/dL (0.0-0.4) 01/11/20 09:45 Neonat Total Bilirubin Not Reportable 01/11/20 09:45 Neonat Direct Bilirubin Not Reportable 01/11/20 09:45 Neonat Indirect Bili Not Reportable 01/11/20 09:45 AST 26 U/L (17-59) 01/11/20 09:45 ALT 32 U/L (<50) 01/11/20 09:45 Alkaline Phosphatase 72 U/L (38-126) 01/11/20 09:45 Creatine Kinase 218 U/L (55-170) H 01/11/20 09:45 CK-MB (CK-2) 2.25 ng/mL (<4.55) 01/11/20 09:45 Troponin I < 0.012 ng/mL 01/11/20 21:35 Total Protein 6.9 g/dL (6.3-8.2) 01/11/20 09:45 Albumin 4.6 g/dL (3.5-5.0) 01/11/20 09:45 Triglycerides 129 mg/dL (<150) 01/12/20 06:10 Cholesterol 150.17 mg/dL (0-200) 01/12/20 06:10 LDL Cholesterol Direct 100 mg/dL (<100) 01/12/20 06:10 VLDL Cholesterol 26.0 mg/dL (10-31) 01/12/20 06:10 HDL Cholesterol 33 mg/dL (>40) L 01/12/20 06:10 TSH 2.79 uIU/mL (0.47-4.68) 01/12/20 06:10 Free T4 0.94 ng/dL (0.78-2.19) 01/12/20 06:10 Urine Opiates Screen NEGATIVE 01/11/20 00:07 Urine Methadone Screen NEGATIVE 01/11/20 00:07 Ur Barbiturates Screen NEGATIVE 01/11/20 00:07 Ur Phencyclidine Scrn NEGATIVE 01/11/20 00:07 Ur Amphetamines Screen NEGATIVE 01/11/20 00:07 U Benzodiazepines Scrn NEGATIVE 01/11/20 00:07 Urine Cocaine Screen NEGATIVE 01/11/20 00:07 U Marijuana (THC) Screen NEGATIVE 01/11/20 00:07 Serum Alcohol < 10 mg/dL (NONE DETECTED) 01/11/20 09:45 01/11/20 01/11/20 01/11/20 09:45 15:28 21:35 CK-MB (CK-2) 2.25 Troponin I < 0.012 < 0.012 < 0.012 Impressions: Chest X-Ray 01/11/20 09:21 IMPRESSION: NO ACUTE RADIOGRAPHIC FINDING IN THE CHEST. Head CT 01/11/20 09:21 IMPRESSION: Old left frontal infarct. No acute finding EVIDENCE OF ACUTE STROKE: NO. Head MRI 01/11/20 10:33 IMPRESSION: Old encephalomalacia left frontal lobe. No acute infarct. Unremarkable [place] MRA exam EVIDENCE OF ACUTE STROKE: NO. Brain MRI with MRA 01/11/20 10:34 IMPRESSION: Old encephalomalacia left frontal lobe. No acute infarct. Unremarkable [place] MRA exam EVIDENCE OF ACUTE STROKE: NO. Neck MRA 01/11/20 10:34 IMPRESSION: NO SIGNIFICANT STENOSIS. Vascular Ultrasound 01/13/20 09:36 IMPRESSION: NO DOPPLER EVIDENCE OF HEMODYNAMICALLY SIGNIFICANT RENAL ARTERY STENOSIS. Stroke Is this a Stroke Patient?: No Stroke Pt being discharged on Anti-thrombolytic therapy?: Yes Reason(s) for not prescribing Anti-thrombolytic therapy:: Not indicated - There is no such thing as an antithrombolytic Stroke Pt being discharged on Anti-coagulation therapy?: No Reason(s) for not prescribing Anti-coagulation therapy:: Not indicated Stroke Pt being discharged on Statins?: Yes Acute Heart Failure Is this a Heart Failure Patient?: No
[2020-01-16 11:38] LABS: EPINEPHRINE 39 pg/mL (0-62); NOREPINEPHRINE 449 pg/mL (0-874)
[2020-01-16 12:58] LABS: DOPAMINE <30 pg/mL (0-48)
== END 2020-01-13 15:55 | disposition home or self-care (01) | DRG 78 ==
LOC: ER 09:19 → EH 18:06 → 3W 20:15
PROVIDERS: ADMIT Internal Medicine; ATTEND Internal Medicine
DX: I67.4 Hypertensive encephalopathy (principal); I16.1 Hypertensive emergency; E11.9 Type 2 diabetes mellitus without complications; E78.5 Hyperlipidemia, unspecified; F17.200 Nicotine dependence, unspecified, uncomplicated; I69.334 Monoplegia of upper limb following cerebral infarction affecting left non-dominant side; R27.0 Ataxia, unspecified; R29.721 NIHSS score 21; I25.2 Old myocardial infarction; Z95.5 Presence of coronary angioplasty implant and graft; J44.9 Chronic obstructive pulmonary disease, unspecified; Z90.49 Acquired absence of other specified parts of digestive tract; Z82.3 Family history of stroke; Z82.49 Family history of ischemic heart disease and other diseases of the circulatory system; Z88.8 Allergy status to other drugs, medicaments and biological substances; Z88.6 Allergy status to analgesic agent; Z79.899 Other long term (current) drug therapy; Z79.84 Long term (current) use of oral hypoglycemic drugs
CPT/HCPCS: 36415; 70450; 70544; 70547; 70551; 71045; 80048; 80053; 80061; 80307; 82088; 82382; 82383; 82550; 82553; 82570; 82962; 83036; 83735; 83835; 84100; 84244; 84439; 84443; 84484; 85025; 85610; 85730; 93005; 93010; 93976; 96374; 99291; J1650; J3490